=== PATIENT | female | born 1945 | race Caucasian/White ===

== ENCOUNTER → 2016-06-14 | Outpatient (CLI) | payer OTHER | LOC: FIMAGING 09:44 | DX: Z12.31 Encounter for screening mammogram for malignant neoplasm of breast (principal) | CPT/HCPCS: G0202 ==

== ENCOUNTER → 2016-06-21 | Outpatient (CLI) | payer OTHER | LOC: FIMAGING 10:04 | PROVIDERS: ATTEND Internal Medicine | DX: Z12.39 Encounter for other screening for malignant neoplasm of breast (principal); N63 Unspecified lump in breast; R92.0 Mammographic microcalcification found on diagnostic imaging of breast | CPT/HCPCS: 76641; G0206 ==

== ENCOUNTER → 2016-06-29 | Outpatient (CLI) | payer OTHER ==
[~2016-06-29] MED LIST: BUPIVACAINE 0.5% 10 ML SDV ONE; LIDO/EPI 1% **Not for Epidural 20 ML MDV ONE; LIDOCAINE 1% 30 ML SDV ONE; NA BICARBONATE 50 MEQ/50 ML VIAL ONE; THROMBIN (BOVINE) 5,000 UNIT VIAL TP ONE
[2016-07-06 11:50] LABS: ACCESSION # HR17-24236; INTERPRETATION See Comments
== END ==
LOC: FIMAGING 13:27
PROVIDERS: ATTEND Internal Medicine
PROC: 0HBT3ZX Excision of Right Breast, Percutaneous Approach, Diagnostic (ICD-10-PCS; principal; 2016-06-29)
DX: C50.911 Malignant neoplasm of unspecified site of right female breast (principal)
CPT/HCPCS: 19083; 88305; 88341; 88342; 88360; 88361; G0206

== ENCOUNTER 2016-07-12 10:51 | Observation (INO) | payer OTHER ==
[2016-07-12] MEDS ORDERED: LIDOCAINE 1% 5 ML SDV ID PRN (12:00)
[2016-07-12] MEDS ORDERED: LR 1,000 ML IV ONE (12:00)
[2016-07-12] MEDS ORDERED: ceFAZolin 2 GM/DEXTROSE 100 ML IV ONE (12:30)
[2016-07-12] MEDS ORDERED: BUPIVACAINE 0.5% 30 ML SDV ONE (13:05)
[2016-07-12] MEDS ORDERED: THROMBIN (BOVINE) 20,000 UNIT SPRAY TP ONE (13:05)
[2016-07-12] MEDS ORDERED: MIDAZOLAM 2 MG/2 ML VIAL ONE (14:11)
[2016-07-12] MEDS ORDERED: PROPOFOL/EMULSION 500 MG/50 ML BOTTLE IV ONE (14:26)
[2016-07-12] MEDS ORDERED: fentaNYL 100 MCG/2 ML INJ ONE ×2 (14:26)
[2016-07-12] MEDS ORDERED: LIDOCAINE 2% 5 ML SDV ONE (15:01)
[2016-07-12] MEDS ORDERED: ROCURONIUM 50 MG/5 ML VIAL ONE (15:01)
[2016-07-12] MEDS ORDERED: epHEDrine SULFATE 10 MG/ML SYR ONE (15:01)
[2016-07-12] MEDS ORDERED: ONDANSETRON 4 MG/2 ML VIAL ONE (15:01)
[2016-07-12] MEDS ORDERED: SUGAMMADEX SODIUM 200 MG/2 ML VIAL IVP ONE (16:02)
[2016-07-12] MEDS ORDERED: NALOXONE HCL 0.4 MG/ML INJ IVP PRN (16:12)
[2016-07-12] MEDS ORDERED: POLYETHYLENE GLYCOL 3350 17 GM PKT PO PRN (16:12)
[2016-07-12] MEDS ORDERED: HYDROmorphONE/DILAUDID 6 MG/30 ML PCA IV PRN (16:12)
[2016-07-12] MEDS ORDERED: ONDANSETRON 4 MG/2 ML VIAL IVP PRN (16:12)
[2016-07-12] MEDS ORDERED: MAGNESIUM HYDROXIDE 30 ML UDCUP PO PRN (16:12)
--- NOTE | 2016-07-12 16:12 | POSTOPPROG ---
Post Op Note Date of Operation: 07/12/16 Surgeon: René Willard Animal Stunner: Angela Del Angel Anesthesiologist: Rhianna Fatima Anesthesia: GET(General Endotracheal) Pre-op Diagnosis: R breast cancer Post-op Diagnosis: same Procedure: B Mastectomy c B Lamar Lymph Node biopsies Findings: benign nodes on frozen section Inf/Abcess present in the surg proc area at time of surgery?: No EBL: Minimal (50 cc) Complications: none Drains: Charles Vieyra Specimen(s): R and L breast to pathology R and L sentinel LNs to pathology
[2016-07-12] MEDS ORDERED: NS W/ 20 KCl/L 1,000 ML IV SCH (16:15)
[2016-07-12] MEDS ORDERED: HYDROmorphONE/DILAUDID 1 MG/ML SYR ONE (17:04)
--- NOTE | 2016-07-12 17:22 | GOP ---
[f rep st] OPERATIVE REPORT DATE OF OPERATION: SURGEON: René Willard MD SOUND EDITOR: CHAU Schwab ANESTHESIOLOGIST: Fatoumata Fatima MD PREOPERATIVE DIAGNOSIS: Right breast cancer. POSTOPERATIVE DIAGNOSIS: Right breast cancer. PROCEDURE PERFORMED: Bilateral mastectomies with sentinel lymph node biopsy. FINDINGS: The patient was found have negative sentinel nodes. She had a 2 cm mass in the lower out er quadrant of the right breast. DESCRIPTION OF PROCEDURE: The patient was taken to the operating room, where she received satisfact ory general endotracheal anesthesia by Dr. Fatima. Placed in supine position with both arms outstre tched on arm board. Prepped and draped in the usual sterile fashion. Bilateral elliptical skin inc isions were made to include the nipple-areolar complex. Skin flaps were developed to the clavicle, to the sternum, to the rectus sheath, and to the axilla and latissimus dorsi. Breast tissue was charlotte vated up off the pectoralis muscle, including the fascia, and dissected from [id number] towar d the axilla. In the axilla, the sentinel nodes were isolated with a gamma probe. Two nodes were d issected out on the right and one node on the left; all sent for frozen sections, and all returned a s negative. The mastectomies were completed bilaterally. Breast tissue was properly marked and rem sophie. Hemostasis was carefully obtained with electrocautery. Wounds were infiltrated with 0.5% Mar deniz and sprayed with some topical thrombin bilaterally. A 10 mm flat GABBI drain was brought out thr ough a separate stab incision and secured to the skin with nylon sutures. Breast tissue was reappro ximated with a running 3-0 Vicryl suture for the subcutaneous tissue and a running 4-0 Monocryl subc uticular stitch for the skin. All layers were infiltrated with 0.5% Marcaine. There were no compli cations. Estimated blood loss was less than 25 cc. She was taken to the recovery room in good condi tion. /[id number]/MODL
[2016-07-12] MEDS: OXYCODONE/APAP 5/325 TAB PO PRN (19:51)
[2016-07-12] MEDS: SENNOSIDES/DOCUSATE SODIUM TAB PO SCH (20:08)
[2016-07-12] MEDS: KETOROLAC 15 MG/1 ML SDV IVP SCH (20:09)
[2016-07-12] MEDS ORDERED: ZOLPIDEM TARTRATE 5 MG TAB PO PRN (23:11)
[2016-07-13] MEDS: KETOROLAC 15 MG/1 ML SDV IVP SCH ×3 (00:20→12:33)
[2016-07-13] MEDS: OXYCODONE/APAP 5/325 TAB PO PRN ×3 (04:29→12:53)
[2016-07-13 05:50] LABS: HEMATOCRIT 35.1 % (38.0-47.0); HEMOGLOBIN 11.5 g/dL (12.6-16.3)
[2016-07-13 06:23] LABS: ANION GAP 4 mEq/L (8-16); CALCIUM 8.5 mg/dL (8.5-10.4); CARBON DIOXIDE 26 mEq/l (22-31); CHLORIDE 106 mEq/L (97-110); CREATININE 0.9 mg/dL (0.6-1.0); GLOMERULAR FILTRATION RATE > 60; GLUCOSE 100 mg/dL (70-100); SODIUM 136 mEq/L (134-144)
[2016-07-13] MEDS: SENNOSIDES/DOCUSATE SODIUM TAB PO SCH (08:59)
--- NOTE | 2016-07-13 11:34 | SOAPPROG ---
SOAP Progress Note Assessment/Plan: Assessment: FEELS GOOD STATUS POST DOUBLE MASTECTOMY / WANTS TO GO HOME / AFEBRILE AND VITAL SIGNS STABLE/ WOUND OKAY/ MINIMAL GABBI DRAINAGE / Plan: HOME TODAY/ FOLLOW-UP NEXT WEEK FOR DRAIN REMOVAL 07/13/16 11:32 Objective: Vital Signs Temp Pulse Resp BP Pulse Ox 37.0 C 74 16 99/56 L 94 07/13/16 08:28 07/13/16 08:28 07/13/16 08:28 07/13/16 08:28 07/13/16 08:28 Laboratory Results 07/13/16 05:34 07/13/16 05:34 07/12/16 07/13/16 07/14/16 05:59 05:59 05:59 Intake Total 3520 Output Total 525 Balance 2995 ICD10 Worksheet Patient Problems: Problems Problem Status Onset Breast cancer Acute - ICD10 Problem Qualifiers (1) Breast cancer Qualifiers: Breast location: B Patient sex: P Laterality: L
[2016-07-13 12:30] VITALS: BP 119/67; PULSE 85; RESP 18; TEMP 98.4; O2SAT 91
[2016-07-14] MEDS ORDERED: ENOXAPARIN 40 MG/0.4 ML SYR SC SCH (09:00)
== END 2016-07-13 12:57 | disposition home or self-care (01) ==
LOC: F3E 10:51 → F1N 15:00
PROVIDERS: ADMIT Surgery; ATTEND Surgery
PROC: 07B60ZX Excision of Left Axillary Lymphatic, Open Approach, Diagnostic (ICD-10-PCS; principal; 2016-07-12 13:45)
PROC: 0HTV0ZZ Resection of Bilateral Breast, Open Approach (ICD-10-PCS; principal; 2016-07-12 13:45)
DX: C50.511 Malignant neoplasm of lower-outer quadrant of right female breast (principal)
CPT/HCPCS: 19305; 78195; A9520; G0378; J0690; J1170; J1885; J2250; J2405; J2704; J3010

== ENCOUNTER 2016-08-18 11:05 | Day surgery (SDC) | payer OTHER ==
[~2016-08-18 11:05] MED LIST changes: -BUPIVACAINE 0.5% 10 ML SDV ONE; +BUPIVACAINE 0.5% 30 ML SDV ONE; -LIDO/EPI 1% **Not for Epidural 20 ML MDV ONE; -LIDOCAINE 1% 30 ML SDV ONE; +LIDOCAINE 1% 300 MG/30 ML SDV ONE; -NA BICARBONATE 50 MEQ/50 ML VIAL ONE; +SODIUM BICARBONATE 10 MEQ/10 ML SYR IVP ONE; -THROMBIN (BOVINE) 5,000 UNIT VIAL TP ONE
[2016-08-18] MEDS ORDERED: ceFAZolin 2 GM/DEXTROSE 100 ML IV ONE ×2 (11:32→13:16)
[2016-08-18] MEDS ORDERED: LIDOCAINE 1% 2 ML INJ ONE (11:53)
[2016-08-18] MEDS ORDERED: LR 1,000 ML IV ONE (12:01)
[2016-08-18] MEDS ORDERED: LIDOCAINE 1% 2 ML INJ ID PRN (12:01)
[2016-08-18] MEDS ORDERED: MIDAZOLAM 2 MG/2 ML VIAL IVP ONE (13:06)
--- NOTE | 2016-08-18 13:16 | PDHPUP ---
History & Physical Update H&P update statement: This history and physical update is based on an assessment of the patient which was completed after admission or registration (within 24 hours), but prior to the surgery/procedure. H&P update: H&P reviewed & patient examined, no change in patient's condition since H&P completed
[2016-08-18] MEDS ORDERED: fentaNYL 100 MCG/2 ML INJ ONE (13:28)
[2016-08-18] MEDS ORDERED: PROPOFOL 200 MG/20 ML VIAL ONE (13:28)
[2016-08-18] MEDS ORDERED: LIDOCAINE 2% 5 ML SDV ONE (13:30)
[2016-08-18] MEDS ORDERED: epHEDrine SULFATE 10 MG/ML SYR ONE (13:39)
[2016-08-18] MEDS ORDERED: ACETAMINOPHEN 500 MG TAB PO PRN (13:58)
[2016-08-18] MEDS ORDERED: OXYCODONE/APAP 5/325 TAB PO PRN ×2 (13:58→15:01)
[2016-08-18] MEDS ORDERED: HYDROCODONE/APAP 5/325 TAB PO PRN (13:58)
[2016-08-18] MEDS ORDERED: PROMETHAZINE HCL 25 MG/ML INJ IVP PRN (13:58)
[2016-08-18] MEDS ORDERED: fentaNYL 100 MCG/2 ML INJ IVP PRN (13:58)
[2016-08-18] MEDS ORDERED: NALOXONE HCL 0.4 MG/ML INJ IVP PRN (13:58)
[2016-08-18] MEDS ORDERED: ONDANSETRON 4 MG/2 ML VIAL IVP PRN (13:58)
[2016-08-18] MEDS ORDERED: HYDROmorphONE/DILAUDID 1 MG/ML SYR IVP PRN (13:58)
[2016-08-18] MEDS ORDERED: KETOROLAC 30 MG/1 ML SDV ONE (14:04)
--- NOTE | 2016-08-18 14:24 | POSTANESTH ---
Post Anesthetic Evaluation Cardiovascular Status: Normal, Stable Respiratory Status: Normal, Stable Level of Consciousness/Mental Status: Can Participate in Eval Pain Control: Adequate, Prn Tx Ordered Nausea/Vomiting Control: Adequate, Prn Tx Ordered Complications Possibly Related to Anesthesia: None Noted
[2016-08-18 14:26] VITALS: TEMP 97
--- NOTE | 2016-08-18 15:05 | POSTOPPROG ---
Post Op Note Date of Operation: 08/18/16 Surgeon: René Willard Anesthesiologist: GASTON Anesthesia: GET(General Endotracheal) Pre-op Diagnosis: BREAST CANCER Post-op Diagnosis: SAME Indication: CHEMO ACCESS Procedure: LEFT SUBCLAVIAN PORT WITH FLUOROSCOPIC GUIDANCE Findings: GOOD POSITION INFLOW Inf/Abcess present in the surg proc area at time of surgery?: No Depth: Deep Incisional (Fascial) EBL: Minimal Complications: NONE
[2016-08-18 15:33] VITALS: BP 134/68; PULSE 75; RESP 18; O2SAT 92
== END 2016-08-18 15:58 | disposition home or self-care (01) ==
LOC: FSGY 11:05
PROVIDERS: ATTEND Surgery
PROC: 02H633Z Insertion of Infusion Device into Right Atrium, Percutaneous Approach (ICD-10-PCS; principal; 2016-08-18 13:15)
DX: C50.911 Malignant neoplasm of unspecified site of right female breast (principal); C77.3 Secondary and unspecified malignant neoplasm of axilla and upper limb lymph nodes
CPT/HCPCS: C1788; J0690; J1642; J1885; J2250; J2704; J3010

== ENCOUNTER → 2016-12-31 | Outpatient (CLI) | payer OTHER | LOC: FIMAGING 14:36 | PROVIDERS: ATTEND Physician Assistant | DX: M41.86 Other forms of scoliosis, lumbar region (principal); M51.36 Other intervertebral disc degeneration, lumbar region ==

== ENCOUNTER 2017-12-23 18:04 | Emergency (ER) | payer OTHER ==
[2017-12-23] MEDS ORDERED: ONDANSETRON 4 MG/2 ML VIAL IVP ONE (18:23)
[2017-12-23] MEDS ORDERED: NS 1,000 ML IV ONE ×2 (18:25→18:56)
--- NOTE | 2017-12-23 18:28 | EDPHY ---
H & P Stated Complaint: Upper abd pain wrapping around to bk-"feels like previous bowel blk" - Medical/Surgical History Hx Asthma: No Hx Chronic Respiratory Disease: No Hx Diabetes: No Hx Cardiac Disease: No Hx Renal Disease: Yes Hx Cirrhosis: No Hx Alcoholism: No Hx HIV/AIDS: No Hx Splenectomy or Spleen Trauma: No Other PMH: laminectomy, nephrectomy 2001 [place], bowel obstruction, hysterectomy, hypertension, degenerative disk disease, fused vertebrae, double masectomy - Social History Smoking Status: Never smoked Alcohol Use: Sober Drug Use: None Time Seen by Provider: 12/23/17 18:11 HPI/ROS: CHIEF COMPLAINT: Severe abdominal pain HISTORY OF PRESENT ILLNESS: 72-year-old female with prior small-bowel obstruction presents with severe abdominal pain. Onset upper abdominal pain 90 min ago. Pain is moderate to severe and waxes and wanes. Associated with nausea. 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 No fever or vomiting. Similar prior episodes with small bowel obstruction. REVIEW OF SYSTEMS: complete 10 point ROS reviewed and is negative except for the noted elements in the HPI (Cyndi Bryant) - Social History Additional Social History: (Cyndi Bryant) - Physical Exam Exam: General Appearance: Alert, pleasant, appears in pain Eyes: Pupils equal and round, no conjunctival pallor or injection ENT, Mouth: Mucous membranes moist Neck: Normal inspection Respiratory: Lungs are clear to auscultation Cardiovascular: Regular rate and rhythm Gastrointestinal: Abdomen is soft, diffuse tenderness especially in the right upper quadrant and epigastrium Neurological: A&O, nonfocal exam Skin: Warm and dry, no rash Extremities: Normal inspection Psychiatric: Mood and affect normal (Cyndi Bryant) Constitutional: Initial Vital Signs Temperature (C) 36.7 C 12/23/17 18:09 Heart Rate 71 12/23/17 18:09 Respiratory Rate 20 12/23/17 18:09 Blood Pressure 100/62 12/23/17 18:09 O2 Sat (%) 100 12/23/17 18:09 O2 Delivery Mode Room Air O2 (L/minute) 2 Allergies/Adverse Reactions: Sulfa (Sulfonamide Antibiotics) Allergy (Severe, Verified 08/17/16 15:43) Other-Enter Comments Home Medications: Medication Instructions Recorded Colestipol HCl [Colestid (*)] 2 gm PO DAILY 07/12/16 Escitalopram Oxalate [Lexapro] 20 mg PO DAILY 07/12/16 LORazepam [Ativan (*)] 0.5 mg PO HS PRN 07/12/16 Losartan Potassium 100 mg PO DAILY 07/12/16 Zolpidem Tartrate [Ambien 10 mg] 5 mg PO HS PRN 07/12/16 Hydrocodone/Acetaminophen 08/17/16 Medical Decision Making - Diagnostics Imaging: Discussed imaging studies w/ call taker Radiologist - Diagnostics Imaging Results: Imaging Impressions Abdomen CT 12/23/17 18:25 Impression: 1. Negative for significant small bowel dilatation. 2. 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 3. See above report for additional findings. ED Course/Re-evaluation: This patient presents with severe abdominal pain, consistent with likely small bowel obstruction. Morphine and Zofran IV given for pain control. CT scan of the abdomen/pelvis ordered. CT results discussed with the patient and her . No evidence of small- bowel obstruction or other concerning etiology for pain. Feels much better and pain has resolved. Abdomen is soft and nontender. Received Dilaudid IV one hour ago. Will observe in the emergency department. If pain returns, plan to admit the patient for observation. 8pm: signed over to Dr. Chisholm. If pt continues to be pain-free, will d/c home. Plan to admit for observation if pain recurs. (Cyndi Bryant) Differential Diagnosis: Differential diagnosis includes though it is not limited to appendicitis, cholecystitis, diverticulitis, pyelonephritis, bowel perforation, small bowel obstruction. (Cyndi Bryant) Other Provider: Care assumed at 8:00 p.m.. Patient examined at 8:50 p.m. She feels well, she is smiling, she is up to the bathroom and essentially asymptomatic, her abdomen is soft and nontender. She would like to go home which I think is reasonable if her urinalysis is normal. Her potassium was 5.9 on hemolyzed specimen, 3.9 on i-STAT, 3.1 on repeat. I do not think that this needs to be emergently addressed. 2102: Discussed with Sebastian Schwartz for Chart. Urinalysis with 5-10 WBC, no dysuria or hematuria or fever, culture sent and no treatment at this time. 2114: No respiratory complaints but continues to desaturate below 90% likely from hypoventilation from the Dilaudid, speaks in full sentences. Plan to observe until she is no longer hypoxic, then stable for discharge. 2213: oxygen 95%, no respiratory complaints or abdominal pain, wants to go home which I think is reasonable. (PhanSandro Ochoa) - Data Points Laboratory Results: Laboratory Results 12/23/17 18:23 12/23/17 20:00 12/23/17 12/23/17 12/23/17 20:50 20:00 18:37 WBC RBC Hgb POC Hgb 15.0 gm/dL gm/dL (12.6-16.3) Hct POC Hct 44 % % (38-47) MCV MCH MCHC RDW Plt Count MPV Neut % (Auto) Lymph % (Auto) [place] % (Auto) Eos % (Auto) Baso % (Auto) Nucleat RBC Rel Count Absolute Neuts (auto) Absolute Lymphs (auto) Absolute Monos (auto) Absolute Eos (auto) Absolute Basos (auto) Absolute Nucleated RBC Immature Gran % Immature Gran # POC Sodium 142 mEq/L mEq/L (135-145) Sodium POC Potassium 3.9 mEq/L mEq/L (3.3-5.0) Potassium 3.1 mEq/L L mEq/L (3.3-5.0) POC Chloride 106 mEq/L mEq/L (97-110) Chloride Carbon Dioxide Anion Gap POC BUN 17 mg/dL mg/dL (7-23) BUN Creatinine POC Creatinine 0.8 mg/dL mg/dL (0.6-1.0) Estimated GFR Glucose POC Glucose 86 mg/dL mg/dL (70-100) Calcium Total Bilirubin Conjugated Bilirubin Unconjugated Bilirubin AST ALT Alkaline Phosphatase Total Protein Albumin Lipase Specimen Hemolysis Urine Color PALE YELLOW Urine Appearance CLEAR Urine pH 5.0 (5.0-7.5) Ur Specific [place] > 1.060 H (1.002-1.030) Urine Protein NEGATIVE (NEGATIVE) Urine Ketones NEGATIVE (NEGATIVE) Urine Blood 1+ H (NEGATIVE) Urine Nitrate NEGATIVE (NEGATIVE) Urine Bilirubin NEGATIVE (NEGATIVE) Urine Urobilinogen NEGATIVE EU EU (0.2-1.0) Ur Leukocyte Esterase 2+ H (NEGATIVE) Urine RBC 1-3 /hpf /hpf (0-3) Urine WBC 5-10 /hpf H /hpf (0-3) Ur Epithelial Cells TRACE /lpf /lpf (NONE-1+) Urine Mucus TRACE /lpf /lpf (NONE-1+) Urine Glucose NEGATIVE (NEGATIVE) 12/23/17 12/23/17 18:23 18:23 WBC 5.63 10^3/uL 10^3/uL (3.80-9.50) RBC 4.78 10^6/uL 10^6/uL (4.18-5.33) Hgb 14.7 g/dL g/dL (12.6-16.3) POC Hgb Hct 44.3 % % (38.0-47.0) POC Hct MCV 92.7 fL fL (81.5-99.8) MCH 30.8 pg pg (27.9-34.1) MCHC 33.2 g/dL g/dL (32.4-36.7) RDW 13.2 % % (11.5-15.2) Plt Count 163 10^3/uL 10^3/uL (150-400) MPV 9.7 fL fL (8.7-11.7) Neut % (Auto) 38.9 % L % (39.3-74.2) Lymph % (Auto) 47.6 % H % (15.0-45.0) [place] % (Auto) 7.6 % % (4.5-13.0) Eos % (Auto) 5.0 % % (0.6-7.6) Baso % (Auto) 0.7 % % (0.3-1.7) Nucleat RBC Rel Count 0.0 % % (0.0-0.2) Absolute Neuts (auto) 2.19 10^3/uL 10^3/uL (1.70-6.50) Absolute Lymphs (auto) 2.68 10^3/uL 10^3/uL (1.00-3.00) Absolute Monos (auto) 0.43 10^3/uL 10^3/uL (0.30-0.80) Absolute Eos (auto) 0.28 10^3/uL 10^3/uL (0.03-0.40) Absolute Basos (auto) 0.04 10^3/uL 10^3/uL (0.02-0.10) Absolute Nucleated RBC 0.00 10^3/uL 10^3/uL (0-0.01) Immature Gran % 0.2 % % (0.0-1.1) Immature Gran # 0.01 10^3/uL 10^3/uL (0.00-0.10) POC Sodium Sodium 137 mEq/L mEq/L (135-145) POC Potassium Potassium 5.9 mEq/L H mEq/L (3.3-5.0) POC Chloride Chloride 106 mEq/L mEq/L (97-110) Carbon Dioxide 20 mEq/l L mEq/l (22-31) Anion Gap 11 mEq/L mEq/L (6-14) POC BUN BUN 15 mg/dL mg/dL (7-23) Creatinine 0.8 mg/dL mg/dL (0.6-1.0) POC Creatinine Estimated GFR > 60 Glucose 86 mg/dL mg/dL (70-100) POC Glucose Calcium 9.3 mg/dL mg/dL (8.5-10.4) Total Bilirubin 1.4 mg/dL mg/dL (0.1-1.4) Conjugated Bilirubin 1.2 mg/dL H mg/dL (0.0-0.5) Unconjugated Bilirubin 0.2 mg/dL mg/dL (0.0-1.1) AST 49 IU/L H IU/L (14-46) ALT 13 IU/L IU/L (9-52) Alkaline Phosphatase 84 IU/L IU/L (38-126) Total Protein 7.6 g/dL g/dL (6.3-8.2) Albumin 4.7 g/dL g/dL (3.5-5.0) Lipase 197 IU/L IU/L (23-300) Specimen Hemolysis 272 Urine Color Urine Appearance Urine pH Ur Specific [place] Urine Protein Urine Ketones Urine Blood Urine Nitrate Urine Bilirubin Urine Urobilinogen Ur Leukocyte Esterase Urine RBC Urine WBC Ur Epithelial Cells Urine Mucus Urine Glucose Medications Given: Discontinued Medications Hydromorphone HCl (Dilaudid) 0.5 mg IVP EDNOW ONE Stop: 12/23/17 18:39 Last Admin: 12/23/17 18:44 Dose: 0.5 mg Sodium Chloride (Ns) 1,000 mls @ 0 mls/hr IV EDNOW ONE; Wide Open PRN Reason: Protocol Stop: 12/23/17 18:26 Last Admin: 12/23/17 18:28 Dose: 1,000 mls Sodium Chloride (Ns) 1,000 mls @ 0 mls/hr IV ONCE ONE; Wide Open PRN Reason: Protocol Stop: 12/23/17 18:57 Last Admin: 12/23/17 19:09 Dose: 1,000 mls Morphine Sulfate (Morphine) 4 mg IVP EDNOW ONE Stop: 12/23/17 18:24 Last Admin: 12/23/17 18:27 Dose: 4 mg Ondansetron HCl (Zofran) 4 mg IVP EDNOW ONE Stop: 12/23/17 18:24 Last Admin: 12/23/17 18:28 Dose: 4 mg Point of Care Test Results: Chemistry 12/23/17 18:37 POC Sodium 142 mEq/L mEq/L (135-145) POC Potassium 3.9 mEq/L mEq/L (3.3-5.0) POC Chloride 106 mEq/L mEq/L (97-110) POC BUN 17 mg/dL mg/dL (7-23) POC Creatinine 0.8 mg/dL mg/dL (0.6-1.0) POC Glucose 86 mg/dL mg/dL (70-100) ISTAT H&H 12/23/17 18:37 POC Hgb 15.0 gm/dL gm/dL (12.6-16.3) POC Hct 44 % % (38-47) Departure - Departure Disposition: Home, Routine, Self-Care Clinical Impression: Abdominal pain Qualifiers: Abdominal location: generalized Qualified Code(s): R10.84 - Generalized abdominal pain Condition: Good Instructions: Acute Abdominal Pain (ED) Additional Instructions: Clear liquids for 24 hr. Return for recurrent symptoms or any concerns. Referrals: Jaswinder Alfredo MD [Primary Care Provider] - 2-3 days without fail
[2017-12-23] MEDS ORDERED: IOPAMIDOL (ISOVUE-300) 100 ML BTL ONE (18:31)
[2017-12-23 18:35] LABS: PLATELET COUNT 163 10^3/uL (150-400)
[2017-12-23] MEDS ORDERED: HYDROmorphONE/DILAUDID 2 MG/ML INJ IVP ONE (18:38)
[2017-12-23 22:12] VITALS: BP 138/67
== END 2017-12-23 22:23 | disposition home or self-care (01) ==
DX: R10.84 Generalized abdominal pain (principal); E86.9 Volume depletion, unspecified
CPT/HCPCS: 74177; 96361; 96374; 96375; 99285; J1170; J2270; J2405; Q9967; 82435-PO; 82565-PO; 82947-PO; 84132-PO; 84295-PO; 84520-PO; 85014-PO

== ENCOUNTER 2017-12-24 13:24 | Inpatient (IN) | payer OTHER ==
--- NOTE | 2017-12-24 13:34 | EDPHY ---
H & P Stated Complaint: abd pain N/V Time Seen by Provider: 12/24/17 13:34 - Medical/Surgical History Hx Asthma: No Hx Chronic Respiratory Disease: No Hx Diabetes: No Hx Cardiac Disease: No Hx Renal Disease: Yes Hx Cirrhosis: No Hx Alcoholism: No Hx HIV/AIDS: No Hx Splenectomy or Spleen Trauma: No Other PMH: laminectomy, nephrectomy 2001 CA, bowel obstruction, hysterectomy, hypertension, degenerative disk disease, fused vertebrae, double masectomy - Social History Smoking Status: Never smoked Constitutional: Initial Vital Signs Temperature (C) 37.5 C 12/24/17 13:30 Heart Rate 79 12/24/17 13:30 Respiratory Rate 18 12/24/17 13:30 Blood Pressure 153/79 H 12/24/17 13:30 O2 Sat (%) 93 12/24/17 13:30 O2 Delivery Mode Nasal Cannula O2 (L/minute) 2 Allergies/Adverse Reactions: Sulfa (Sulfonamide Antibiotics) Allergy (Severe, Verified 12/24/17 13:30) Other-Enter Comments Home Medications: Medication Instructions Recorded Colestipol HCl [Colestid (*)] 2 gm PO BID 07/12/16 Escitalopram Oxalate [Lexapro] 20 mg PO DAILY 07/12/16 LORazepam [Ativan (*)] 0.5 - 1 mg PO HS PRN 07/12/16 Losartan Potassium 100 mg PO DAILY 07/12/16 Zolpidem Tartrate [Ambien 10 mg] 5 mg PO HS PRN 07/12/16 Hydrocodone/Acetaminophen [Blackey 1 each PO Q6 PRN 08/17/16 5/325 (*)] Herbals/Supplements -Info Only 1 ea PO DAILY 12/24/17 Benzocaine/Menthol 15/ [Cepacol 1 ea PO PRN PRN lozenge 12/29/17 Lozenge] Medical Decision Making ED Course/Re-evaluation: CHIEF COMPLAINT: Abdominal pain, nausea, and vomiting HISTORY OF PRESENT ILLNESS: The patient is a 72 y/o female with a history of an abdominal obstruction, kidney cancer, left-sided nephrectomy, and hysterectomy complaining of abdominal pain, nausea and vomiting. She has had three bowel obstructions, which was thought to be due to the scar tissue from the hysterectomy. For the prior obstructions she saw Dr. Willard, general surgeon. She presented to the emergency department yesterday and had an unremarkable abdominopelvic CT. 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 The left kidney is surgically absent. She was giving numerous medications and her pain subsided after she was given Dilaudid. She was discharged home, but upon returning home the pain increased again. Today she began to vomit more and is no longer passing flatulence. As her symptoms worsened, she decided to present to the emergency department again. No headache, chest pain, shortness of breath , urinary or bowel complaints, numbness, paresthesias, fevers. REVIEW OF SYSTEMS: A comprehensive 10 system review of systems is otherwise negative aside from elements mentioned in the history of present illness and medical decision making. PHYSICAL EXAM: HR, BP, O2 Sat, RR. Temp noted General Appearance: Alert, well hydrated, appropriate, and non-toxic appearing. Head: Atraumatic without scalp tenderness or obvious injury Eyes: Pupils equal, round, reactive to light and accommodation, EOMI, no trauma , no injection. Ears: Clear bilaterally, no perforation, normal landmarks Nose: Atraumatic, no rhinorrhea, clear. Throat: There is no erythema or exudates, no lesions, normal tonsils, mucus membranes moist. Neck: Supple, nontender, no lymphadenopathy. Respiratory: No retractions, no distress, no wheezes, and no accessory muscle use. Lungs are clear to auscultation bilaterally. Cardiovascular: Regular rate and rhythm, no murmurs, rubs, or gallops. Bilateral carotid, radial, dorsalis pedis, and posterior tibial pulses intact. Good capillary refill all extremities. Gastrointestinal: Diffuse abdominal tenderness with mild distension. Abdomen is soft, no masses, no rebound, no guarding, no peritoneal signs. Musculoskeletal: Normal active ROM of all extremities, atraumatic. Neurological: Alert, appropriate, and interactive. The patient has normal DTRs and non-focal cranial nerves, motor, sensory, and cerebellar exam. Skin: No rashes, good turgor, no nodules on palpation. Past medical history: Kidney cancer, bowel obstruction, hypertension, degenerative disk disease Past surgical history: Laminectomy, left-sided nephrectomy, hysterectomy, fused vertebrae, double mastectomy Family history: Denies Social history: at bedside, lives in [place], retired DIAGNOSTICS/PROCEDURES/CRITICAL CARE TIME: Not indicated DIFFERENTIAL DIAGNOSIS: The differential diagnosis for the patient's abdominal pain included but was not limited to bowel obstruction, ovarian cyst, pelvic inflammatory disease, ovarian torsion, urinary tract infection, ectopic , cholecystitis, and appendicitis. MEDICAL DECISION MAKING: The patient is a 72 y/o female with a history of an abdominal obstruction, kidney cancer, left-sided nephrectomy, and hysterectomy complaining of abdominal pain, nausea and vomiting. She did have an abdominopelvic CT yesterday , which showed a possible obstruction. On exam she has diffuse abdominal tenderness with mild distension; she is clinically obstructed. Labs and abdominopelvic CT ordered; 1L IV NS, 30mg IV Toradol, and 1mg IV Dilaudid administered. 1340: I spoke with Dr. Mike Alfredo's PA, Sebastian Schwartz, regarding this patient. If surgery is not required, then he will consult on this patient. He is comfortable with admitting this patient if needed. 1418: I spoke with Dr. Adams, radiologist, regarding this patient. He reports that the patient did have a mild obstruction yesterday. He told Dr. Bryant that the patient had "dilated pelvic loops", however the patient only had upper abdominal pain so it was thought that she wasn't obstructed. Additionally, the patient reports her symptoms where completely gone when she left the ER. I will call Dr. Willard/Alex, general surgeon, for the bowel obstruction. 1420: Reassessed patient and discussed plan to not have an additional CT. She is comfortable with plan for surgery and admission. I feel she is clinically obstructed and based on CT yesterday does not require additional radiation exposure. 1428: I consulted with Dr. Johnson, general surgeon, regarding this patient. Dr. Johnson and Sebastian Schwartz will talk to decide who will admit the patient. 1437: I consulted with Dr. Willard, general surgeon, regarding this patient. Dr. Alfredo, will admit this patient. Dr. Willard will see this patient tomorrow. NG tube ordered. 1439: Reassessed patient and discussed plan for Dr. Willard consultation and NG tube placement. Dr. Johnson is in the patient's room at my time of reassessment. Patient is comfortable with this plan. - Data Points Laboratory Results: Laboratory Results 12/25/17 08:18 12/25/17 08:18 Medications Given: Discontinued Medications Hydrocodone Bitart/Acetaminophen ([place] 5/325) 1 tab PO Q6 PRN PRN Reason: Pain, Moderate Stop: 01/03/18 14:58 Last Admin: 12/28/17 20:35 Dose: 1 tab Bupivacaine HCl (Sensorcaine 0.5% Vial) Confirm Administered Dose 30 ml .ROUTE .STK-MED ONE Stop: 12/25/17 13:19 Last Admin: 12/25/17 14:18 Dose: 20 ml Enoxaparin Sodium (Lovenox) 40 mg SC DAILY [facility] Stop: 06/23/18 11:59 Last Admin: 12/29/17 08:41 Dose: 40 mg Escitalopram Oxalate (Lexapro) 20 mg PO DAILY [facility] Stop: 06/23/18 08:59 Last Admin: 12/29/17 08:40 Dose: 20 mg Heparin Sodium (Porcine) (Heparin Sc Injection) 5,000 unit SC Q8 [facility] Stop: 06/22/18 21:59 Last Admin: 12/25/17 05:39 Dose: 5,000 unit Hydromorphone HCl (Dilaudid) 1 mg IVP EDNOW ONE Stop: 12/24/17 13:44 Last Admin: 12/24/17 13:53 Dose: 1 mg Hydromorphone HCl (Dilaudid) 0.2 - 0.4 mg IVP Q4HRS PRN PRN Reason: Pain, Severe Unable to Take PO Stop: 01/03/18 14:49 Last Admin: 12/25/17 05:37 Dose: 0.4 mg Hydromorphone HCl (Dilaudid) 0.2 - 0.8 mg IVP Q3 PRN PRN Reason: Pain, Severe Unable to Take PO Stop: 01/03/18 14:49 Last Admin: 12/25/17 10:07 Dose: 0.5 mg Hydromorphone HCl (Dilaudid) 0.2 - 0.8 mg IVP Q1 PRN PRN Reason: Pain, Severe Unable to Take PO Stop: 01/04/18 06:59 Last Admin: 12/28/17 15:13 Dose: 0.8 mg Sodium Chloride (Ns) 1,000 mls @ 0 mls/hr IV EDNOW ONE; Wide Open PRN Reason: Protocol Stop: 12/24/17 13:44 Last Admin: 12/24/17 13:54 Dose: 1,000 mls Potassium Chloride/Dextrose/Sod Cl (D5w 1/2 Ns W/ 20 Kcl/L) 1,000 mls @ 125 mls /hr IV CONT [facility]A Stop: 06/22/18 14:59 Last Admin: 12/25/17 09:00 Dose: 1,000 mls Cefoxitin Sodium 2 gm/ Sodium (Chloride) 100 mls @ 200 mls/hr IV ONCALL ONE PRN Reason: Protocol Stop: 12/25/17 13:11 Last Admin: 12/25/17 13:38 Dose: 100 mls Lactated Ringer's (Lr) 1,000 mls @ 0 mls/hr IV ONCE ONE PRN Reason: As Directed Stop: 12/25/17 13:10 Last Admin: 12/25/17 13:35 Dose: 1,000 mls Potassium Chloride/Dextrose/Sod Cl (D5w 1/2 Ns W/ 20 Kcl/L) 1,000 mls @ 150 mls /hr IV CONT [facility] Stop: 06/23/18 18:29 Last Admin: 12/28/17 19:39 Dose: 1,000 mls Ketorolac Tromethamine (Toradol) 30 mg IVP EDNOW ONE Stop: 12/24/17 13:44 Last Admin: 12/24/17 13:52 Dose: 30 mg Losartan Potassium (Cozaar) 100 mg PO DAILY [facility] Stop: 06/23/18 08:59 Last Admin: 12/29/17 08:40 Dose: 100 mg Metoclopramide HCl (Reglan Injection) 10 mg IVP ONCE ONE Stop: 12/28/17 07:17 Last Admin: 12/28/17 08:10 Dose: 10 mg Midazolam HCl (Versed) 2 mg IVP ONCALL ONE Stop: 12/25/17 13:05 Last Admin: 12/25/17 13:35 Dose: 2 mg Ondansetron HCl (Zofran) 4 mg IVP EDNOW ONE Stop: 12/24/17 13:44 Last Admin: 12/24/17 13:52 Dose: 4 mg Ondansetron HCl (Zofran) 4 mg IVP Q4HRS PRN PRN Reason: Nausea/Vomiting, Can't Take PO Stop: 06/22/18 14:49 Last Admin: 12/25/17 05:42 Dose: 4 mg Throat Lozenges (Cepacol Lozenge) 1 ea PO PRN PRN PRN Reason: Sore Throat Stop: 06/25/18 10:53 Last Admin: 12/28/17 07:12 Dose: 1 ea Point of Care Test Results: Chemistry 12/24/17 13:55 POC Sodium 141 mEq/L mEq/L (135-145) POC Potassium 3.6 mEq/L mEq/L (3.3-5.0) POC Chloride 105 mEq/L mEq/L (97-110) POC BUN 11 mg/dL mg/dL (7-23) POC Creatinine 0.7 mg/dL mg/dL (0.6-1.0) POC Glucose 126 mg/dL H mg/dL (70-100) ISTAT H&H 12/24/17 13:55 POC Hgb 14.6 gm/dL gm/dL (12.6-16.3) POC Hct 43 % % (38-47) Departure - Departure Disposition: [facility] Inpatient Acute Clinical Impression: Abdominal pain Qualifiers: Abdominal location: generalized Qualified Code(s): R10.84 - Generalized abdominal pain Nausea with vomiting Qualifiers: Vomiting type: unspecified Vomiting Intractability: unspecified Qualified Code( s): R11.2 - Nausea with vomiting, unspecified Bowel obstruction Qualifiers: Intestinal obstruction type: unspecified Intestinal obstruction extent: unspecified extent Qualified Code(s): K56.609 - Unspecified intestinal obstruction, unspecified as to partial versus complete obstruction Condition: Good Report Scribed for: Karlos Alva Report Scribed by: Zainab Lowry Date of Report: 12/24/17 Time of Report: 13:36
[2017-12-24] MEDS ORDERED: NS 1,000 ML IV ONE (13:43)
[2017-12-24] MEDS ORDERED: HYDROmorphONE/DILAUDID 2 MG/ML INJ IVP ONE (13:43)
[2017-12-24] MEDS ORDERED: ONDANSETRON 4 MG/2 ML VIAL IVP ONE (13:43)
[2017-12-24] MEDS ORDERED: KETOROLAC 30 MG/1 ML SDV IVP ONE (13:43)
[2017-12-24 14:05] LABS: PLATELET COUNT 175 10^3/uL (150-400)
[2017-12-24] MEDS ORDERED: LIDOCAINE 2% VISCOUS 15 ML UDCUP ONE (14:42)
[2017-12-24] MEDS ORDERED: BENZOCAINE UNIT DOSE SPRAY HURRICAINE MM ONE (14:42)
[2017-12-24] MEDS ORDERED: PROMETHAZINE HCL 25 MG/ML INJ IVP PRN (14:50)
[2017-12-24] MEDS ORDERED: LORazepam 0.5 MG TAB PO PRN ×2 (14:50→14:59)
[2017-12-24] MEDS ORDERED: ONDANSETRON DISINTEGRATING 4 MG TAB PO PRN (14:50)
[2017-12-24] MEDS ORDERED: LORazepam 2 MG/ML INJ IVP PRN (14:50)
[2017-12-24] MEDS ORDERED: diphenhydrAMINE 25 MG CAP PO PRN (14:50)
[2017-12-24] MEDS ORDERED: ACETAMINOPHEN 325 MG TAB PO PRN (14:50)
--- NOTE | 2017-12-24 15:26 | GCON ---
DATE OF CONSULTATION: 12/24/2017 CHIEF COMPLAINT: Small bowel obstruction. HISTORY OF PRESENT ILLNESS: The patient is a 72-year-old woman who is well known to Dr. Willard for hi story of renal cancer, nephrectomy, and has had lysis of adhesions in the past. She has also had rosario ast cancer in surgery for him and bilateral mastectomy with that. She presented to the emergency jozef yesterday with pain. It was crampy and feeling bloated. She tried an enema. A CT scan was obtain ed, which showed no significant small bowel dilatation. There was increased size in her angiomyolipo ma. She was discharged home; however, she started to have emesis. She had last passed flatus yester day and she continues to feel that she has a bowel obstruction. She presented to the ER. PAST MEDICAL HISTORY: Includes hypertension, hyperlipidemia, depression. PAST SURGICAL HISTORY: Includes nephrectomy in 2000, bowel obstruction, lysis of adhesions, hysterec zita, bilateral mastectomy. MEDICATIONS: Reviewed. ALLERGIES: Include sulfa. SOCIAL HISTORY: She does not use tobacco products. REVIEW OF SYSTEMS: No flatus or bowel movement. She has been vomiting. She denies abdominal pain. PHYSICAL EXAM: VITAL SIGNS: 37.5, 91, 127/74, 18, 93% on 2 L. GENERAL: Pleasant woman, appears wel l, sitting on gurney. HEENT: Normocephalic. No gross hearing deficits. Mucous membranes moist. P upils equal and round. No scleral icterus. LUNGS: Clear to auscultation bilaterally. No increased work of breathing. CARDIAC: Regular rate. ABDOMEN: Hyperactive bowel sounds. She is slightly di stended and tympanitic, but she is soft. Her midline scar is well healed. MUSCULOSKELETAL: Normal nails. IMPRESSION/PLAN: The patient is a 72-year-old with a CT scan that is not suggestive of a bowel obstr uction, but she is not passing flatus and throwing up. We will place an nasogastric tube. I am creek ng that she will resolve with intravenous fluids and bowel rest. I discussed the case with Dr. Lele sahni and with MEGHAN Weeks. /[id number]/MODL
--- NOTE | 2017-12-24 16:03 | GHP ---
DATE OF ADMISSION: 12/24/2017 REASON FOR ADMISSION: Abdominal pain. HISTORY OF PRESENT ILLNESS: This is a 72-year-old female who developed rather sudden onset of severe abdominal pain at 4 o'clock yesterday. She has a history of several small bowel obstructions, ultim ately needing to be released by surgery with Dr. Willard. Given her history and severity of pain, she came to the ER yesterday. She had x-rays done which were unconvincing for small-bowel obstruction. She was given Dilaudid IV with nice improvement of her pain and eventually went home. Unfortunately, she remained to be fairly uncomfortable through the night and this morning, returned back to the [facility] room. Images are currently pending, but her abdominal pain, she finds to be identical to pain she has previously experienced with small bowel obstruction. She has also begun nausea and vomiting . Her last bowel movement was yesterday. She has not had any flatus since yesterday. Her appetite is diminished. She has had a low-grade temperature. PAST MEDICAL HISTORY: Significant for prior renal cell carcinoma excision in 2000, bilateral mastect triny for breast cancer 2016, hypertension, low back pain, prior small bowel obstructions times at [facility]. SOCIAL HISTORY: , retired, lives at home with . Nonsmoker, nondrinker. FAMILY HISTORY: Mother from heart disease. Father lived to be into old age. MEDICATIONS: As noted per chart. ALLERGIES: Sulfa drugs. CODE STATUS: She is a full code. REVIEW OF SYSTEMS: GENERAL: She is feeling tired and fatigued, concerned. Suspect she has underlyi ng small bowel obstruction. HEAD: She does have some headaches. She denies visual change. Her negrita th has been dry. No dental complaints. NECK: No acute neck complaints. LUNGS: She denies shortne ss of breath, cough, wheeze or congestion. CARDIAC: She denies chest pain or palpitations. ABDOMEN : Notable for fairly significant low abdominal pain which wraps around from front to back. She stat es this is similar to pain she has had with previous small bowel obstructions. She has had nausea an d vomiting. She has not had bowel sounds or appropriate bowel activity including passing gas or felipe l movement since yesterday. No urinary complaints. BACK: Chronic low back pain is unchanged. No a cute issues. EXTREMITIES: Lower extremities without any acute complaints. PHYSICAL EXAM: VITAL SIGNS: Blood pressure initially 153/79, heart rate 78, respiratory rate 18, sa turation 93% on room air, temperature 37.5. Second blood pressure measurement 127/74. She is now 93 % on 2 L of oxygen. GENERAL: Pleasant, uncomfortable female. EYES: Symmetric pupils. HEAD: With out evidence of trauma. Oropharynx is benign. Tongue is somewhat dry. NECK: Without masses or les ions. LUNGS: Clear bilaterally. Dry cough. No crackles. HEART: Regular rate and rhythm without murmur. ABDOMEN: Quiet bowel sounds. Soft. She is moderately to significantly tender in the lower abdomen. Most discomfort is in the suprapubic region. No guarding or rebound. SKIN: Warm, dry, i ntact. EXTREMITIES: Lower extremities without edema. No acute joint swellings. PSYCHOLOGICAL: Anx ious, worried appropriately given her surgical history. DATABASE: White count unremarkable at 5.29, hemoglobin is 14.5, platelets 175. There is a left shif t on her white blood cells. Serum chemistry grossly normal. Sugar 126, potassium 3.6. Liver functi ons and pancreatic functions unremarkable. IMAGING: From yesterday, less dilation noted in comparison to prior, but prior imaging correlated wi th the need for eventual surgery. Further imaging is pending. ASSESSMENT: 1. Probable small bowel obstruction. I have spoken with Dr. Yudelka Johnson. Surgery will consult. An ticipate NG tube, decompression of stomach, and see how she progresses. Will provide intravenous Dil audid for pain control. Continue her medicines. Will allow ice chips to see if she can at least avery ntain some level of mouth moisturization. 2. Chronic back pain. No acute changes. Currently not much in the symptomatic range. 3. Hypertension, well controlled. Continue current medications. 4. Anxiety/depression. Continue Lexapro. /[id number]/MODL
[2017-12-24] MEDS: D5W 1/2 NS W/ 20 KCl/L 1,000 ML IV SCH (16:45)
[2017-12-24] MEDS: HYDROCODONE/APAP 5/325 TAB PO PRN (19:28)
[2017-12-24] MEDS: HYDROmorphONE/DILAUDID 1 MG/ML INJ IVP PRN (19:59)
[2017-12-24] MEDS: HEPARIN 5,000 UNIT/0.5 ML INJ SC SCH (21:56)
[2017-12-25] MEDS: D5W 1/2 NS W/ 20 KCl/L 1,000 ML IV SCH ×3 (00:38→21:06)
[2017-12-25] MEDS: HYDROmorphONE/DILAUDID 1 MG/ML INJ IVP PRN ×7 (01:26→23:11)
[2017-12-25] MEDS: ONDANSETRON 4 MG/2 ML VIAL IVP PRN ×2 (01:28→05:42)
[2017-12-25] MEDS: HEPARIN 5,000 UNIT/0.5 ML INJ SC SCH (05:39)
--- NOTE | 2017-12-25 08:20 | SOAPPROG ---
SOAP Progress Note Assessment/Plan: Assessment: 72 yo female with h/o multiple SBO, breast cancer with bilat mastectomy in 2016, renal cell carcinoma with excision in 2000, hypertension and chronic low back pain who presented to the ED with sudden onset of severe abdominal pain similar to pain she experienced with her prior SBOs. Xray and CT were without e/o current SBO, however given the pain and presentation a NGT was placed. Gen surg has consulted (appreciate assistance!). Plan: Acute abd pain - has improved somewhat since placement of the NGT and with the IV dilaudid, however she is quite distended and firm to her bilat lower abd ( LLQ > RLQ) and has not had flatus still. Will await surg input but will likely need exploratory surgery if pain does not resolve. Hypertension - currently stable DVT prophylaxis - lovenox sq Dispo - will switch to inpt as anticipate that she will stay greater than two midnights total given her persistent abd pain without resolution or identified cause 12/25/17 08:20 Subjective: Elsa is resting in bed. She says that she is feeling slightly better and not nauseous since the placement of the NGT, however her bilat lower abd, flakito the LLQ is still very TTP and is distended, firm. Objective: Vital Signs Temp Pulse Resp BP Pulse Ox 37.2 C 72 17 121/65 H 90 L 12/25/17 03:01 12/25/17 03:01 12/25/17 03:01 12/25/17 03:01 12/25/17 03:01 12/24/17 12/25/17 12/26/17 05:59 05:59 05:59 Intake Total 1785 Output Total 525 Balance 1260 Gen- alert, oriented, vitals stable Head- normocephalic, atraumatic Resp- LCTAB, no wheezing, rhonchi, rales CV- S1S2, RRR, no murmurs, rubs gallops Abd- NGT to suction, bilat lower quads very TTP, firm, distended Extremities- no peripheral edema Neuro- grossly intact ICD10 Worksheet Patient Problems: Problems Problem Status Onset Abdominal pain Acute Bowel obstruction Acute Nausea with vomiting Acute Breast cancer Acute
[2017-12-25] MEDS: LOSARTAN POTASSIUM 50 MG TAB PO SCH (09:00)
[2017-12-25] MEDS: ESCITALOPRAM OXALATE 10 MG TAB PO SCH (09:00)
[2017-12-25 11:14] LABS: PLATELET COUNT 136 10^3/uL (150-400)
--- NOTE | 2017-12-25 12:33 | ASMTCMCOM ---
CM Note CM Note Notes: Pt is a 72 y/o female admitted for a bowel obstruction. Surgery has been consulted. Needs are TBD at this time. CM to follow. Plan: TBD Date Signed: 12/25/2017 12:32 PM Electronically Signed By:AJAY Okeefe
--- NOTE | 2017-12-25 12:40 | PDMN ---
Medical Necessity Medical necessity: MCG M05 abd pain undg: symptoms similar to previous SBO, NG placement - IV pain meds, abd still painful and distended - firm, neg. flatus, + vomiting, surg consult pend. sig. PMH including previous SBO, renal Ca., nephrectomy, lysis of adhesions, status changed to INPT 12/25/17 for ongoing care of poss SBO req NGT and further monitoring.
[2017-12-25] MEDS ORDERED: cefOXitin SODIUM 2 GM in NS 100 ML IV ONE (12:42)
--- NOTE | 2017-12-25 13:03 | PDANEPAE ---
ANE History of Present Illness Laparoscopic exploration, ZAN, possible resection of small bowel ANE Past Medical History - Cardiovascular History Hx Hypertension: Yes Hx Arrhythmias: No Hx Chest Pain: No Hx Coronary Artery / Peripheral Vascular Disease: No Hx CHF / Valvular Disease: No Hx Palpitations: No Cardiovascular History Comment: well controlled HTN - Pulmonary History Hx COPD: No Hx Asthma/Reactive Airway Disease: No Hx Recent Upper Respiratory Infection: No Hx Oxygen in Use at Home: No Hx Sleep Apnea: No - Neurologic History Hx Cerebrovascular Accident: No Hx Seizures: No Hx Dementia: No - Endocrine History Hx Diabetes: No - Renal History Hx Renal Disorders: Yes Renal History Comment: REMOVAL LT KIDNEY FOR CA - Liver History Hx Hepatic Disorders: No - Neurological & Psychiatric Hx Hx Neurological and Psychiatric Disorders: Yes Neurological / Psychiatric History Comment: DEPRESSION- on Rx "feels okay about current health" - Cancer History Hx Cancer: Yes Cancer History Comment: KIDNEY, R breast infiltrating ductal carcinoma - Congenital Disorder History Hx Congenital Disorders: No - GI History Hx Gastrointestinal Disorders: No Gastrointestinal History Comment: History of 3 intestinal blockages with surgeries - Other Health History Other Health History: Sm "lump and some bruising R chest area" (R mastectomy). LOWER BACK. HAS DDD 3 VERTEBRA FUSED LOWER BACK - Chronic Pain History Chronic Pain: Yes (LOWER BACK) - Surgical History Prior Surgeries: Bilat mastectomy w/sentinel node bx 07-12-16. CERVICAL LAMINECTOMY 11/[address] [facility]. LYSIS OF ADHESIONS X3. REMVL LT KIDNEY FOR CA. COLECTOMY FOR BLOCKAGE x3. HYSTERECTOMY ANE Review of Systems Review of systems is: negative Review of Systems: - Exercise capacity Exercise capacity: >=4 METS ANE Patient History - Allergies Allergies/Adverse Reactions: Sulfa (Sulfonamide Antibiotics) Allergy (Severe, Verified 12/24/17 13:30) Other-Enter Comments - Home Medications Home medications: home medication list seen and reviewed Home Medications: Colestipol HCl [Colestid (*)] 2 gm PO BID 07/12/16 [Last Taken 08/17/16] Escitalopram Oxalate [Lexapro] 20 mg PO DAILY 07/12/16 [Last Taken 08/18/16 07: 00] LORazepam [Ativan (*)] 0.5 - 1 mg PO HS PRN 07/12/16 [Last Taken 08/16/16] Losartan Potassium 100 mg PO DAILY 07/12/16 [Last Taken 08/18/16 07:00] Zolpidem Tartrate [Ambien 10 mg] 5 mg PO HS PRN 07/12/16 [Last Taken 08/17/16] Hydrocodone/Acetaminophen [[place] 5/325 (*)] 1 each PO Q6 PRN 08/17/16 [Last Taken 1 Week Ago ~08/11/16] Herbals/Supplements -Info Only 1 ea PO DAILY 12/24/17 [Last Taken Unknown] - NPO status NPO Status: no food or drink >8 hours - Anes Hx Anes Hx: no prior problems - Smoking Hx Smoking Status: Never smoked - Family Anes Hx Family Anes Hx: none Family Hx Anesthesia Complications: None known ANE Labs/Vital Signs - Labs Result Diagrams: 12/25/17 08:18 12/25/17 08:18 - Vital Signs Vital Signs: reviewed preoperatively; see RN documention for details Blood Pressure: 142/75 Heart Rate: 92 Respiratory Rate: 12 O2 Sat (%): 96 Height: 152.4 cm Weight: 63 kg ANE Physical Exam - Airway Neck exam: FROM Mallampati Score: Class 2 Mouth exam: normal dental/mouth exam - Pulmonary Pulmonary: no respiratory distress - Cardiovascular Cardiovascular: regular rate and rhythym - ASA Status ASA Status: II, E ANE Anesthesia Plan Anesthesia Plan: general endotracheal anesthesia (RSI)
[2017-12-25] MEDS ORDERED: MIDAZOLAM 2 MG/2 ML VIAL IVP ONE (13:04)
[2017-12-25] MEDS ORDERED: LR 1,000 ML IV ONE (13:09)
[2017-12-25] MEDS: ENOXAPARIN 40 MG/0.4 ML SYR SC SCH (13:16)
[2017-12-25] MEDS ORDERED: BUPIVACAINE 0.5% 30 ML SDV ONE (13:18)
--- NOTE | 2017-12-25 13:30 | SOAPPROG ---
SOAP Progress Note Assessment/Plan: Assessment: PERSISTENT SBO WITH PAIN/ NO BM OR FLATUS FOR 3 DAYS CO SVERE CRAMPY ABD PAIN ABD SOFT, DISTENDED MILDLY TENDER RISKS AND OPTIONS FULLY DISCUSSED Plan:TO OR 12/25/17 13:29 Objective: Vital Signs Temp Pulse Resp BP Pulse Ox 37.2 C 92 12 142/75 H 96 12/25/17 13:11 12/25/17 13:27 12/25/17 13:27 12/25/17 13:27 12/25/17 13:27 ICD10 Worksheet Patient Problems: Problems Problem Status Onset Abdominal pain Acute Bowel obstruction Acute Nausea with vomiting Acute Breast cancer Acute
[2017-12-25] MEDS ORDERED: ROCURONIUM 50 MG/5 ML VIAL ONE ×2 (13:33→14:52)
[2017-12-25] MEDS ORDERED: ONDANSETRON 4 MG/2 ML VIAL ONE (13:33)
[2017-12-25] MEDS ORDERED: fentaNYL 250 MCG/5 ML INJ ONE (13:33)
[2017-12-25] MEDS ORDERED: LIDOCAINE 2% 100 MG/5 ML SYR ONE (13:33)
[2017-12-25] MEDS ORDERED: PROPOFOL 200 MG/20 ML VIAL ONE (13:33)
[2017-12-25] MEDS ORDERED: DEXAMETHASONE 4 MG/ML VIAL ONE (13:33)
[2017-12-25] MEDS ORDERED: ACETAMINOPHEN 500 MG TAB PO PRN (14:59)
[2017-12-25] MEDS ORDERED: HYDROmorphONE/DILAUDID 2 MG/ML INJ IVP PRN (14:59)
[2017-12-25] MEDS ORDERED: oxyCODONE IR 5 MG TAB PO PRN (14:59)
[2017-12-25] MEDS ORDERED: DEXAMETHASONE 4 MG/ML VIAL IVP PRN (14:59)
[2017-12-25] MEDS ORDERED: ONDANSETRON 4 MG/2 ML VIAL IVP PRN ×2 (14:59→18:16)
[2017-12-25] MEDS ORDERED: HYDROCODONE/APAP 5/325 TAB PO PRN (14:59)
[2017-12-25] MEDS ORDERED: fentaNYL 100 MCG/2 ML INJ IVP PRN (14:59)
[2017-12-25] MEDS ORDERED: MEPERIDINE 25 MG/0.5 ML AMP IVP PRN (14:59)
[2017-12-25] MEDS ORDERED: NALOXONE HCL 0.4 MG/ML INJ IVP PRN ×2 (14:59→18:17)
[2017-12-25] MEDS ORDERED: PROMETHAZINE HCL 25 MG/ML INJ IVP PRN (14:59)
--- NOTE | 2017-12-25 15:01 | POSTANESTH ---
Post Anesthetic Evaluation Cardiovascular Status: Normal, Stable, Similar to Pre-Op Cond Respiratory Status: Normal, Stable, Similar to Pre-op Cond. Level of Consciousness/Mental Status: Can Participate in Eval, Mildly Sleepy, Arousable Pain Control: Adequate, Prn Tx Ordered Nausea/Vomiting Control: Adequate, Prn Tx Ordered Complications Possibly Related to Anesthesia: None Noted
[2017-12-25] MEDS ORDERED: SUGAMMADEX SODIUM 200 MG/2 ML VIAL IVP ONE (15:09)
[2017-12-25] MEDS ORDERED: MEPERIDINE 25 MG/ML SYR ONE (15:29)
--- NOTE | 2017-12-25 18:13 | POSTOPPROG ---
Post Op Note Date of Operation: 12/25/17 Surgeon: René Willard Anesthesiologist: DELL Anesthesia: GET(General Endotracheal) Pre-op Diagnosis: SBO Post-op Diagnosis: SBO Indication: SEVERE PAIN Procedure: LAPAROSCOPY, LAPAROTOMY FOR ADHESIOLYSIS Findings: CLOSED LOOP BOWEL OBSTRUCTION THE PELVIS FROM A SINGLE ADHESIONS, VIABLE OBED Inf/Abcess present in the surg proc area at time of surgery?: Yes Depth: Organ Space EBL: Minimal Complications: NONE
[2017-12-25] MEDS ORDERED: HYDROmorphONE/DILAUDID 6 MG/30 ML PCA IV PRN (18:17)
--- NOTE | 2017-12-25 18:25 | PDGENHP ---
History & Physical Chief Complaint: ABDOMINAL PAIN History of Present Illness: 72-YEAR-OLD FEMALE WELL KNOWN TO ME WHO PRESENTS WITH A RECURRENT SMALL-BOWEL OBSTRUCTION. CT SCAN IS NONDIAGNOSTIC BUT HER PLAIN FILMS SUGGEST DILATED SMALL BOWEL. SHE IS HAVING WAVES OF CRAMPY PAIN GOING ACROSS HER MID ABDOMEN AND IS DISTENDED AND QUITE UNCOMFORTABLE. NO EMESIS BUT NOT DEFINITELY NAUSEA. NO BOWEL MOVEMENT OR FLATUS FOR 3 DAYS. HISTORY OF MULTIPLE INTRA-ABDOMINAL SURGERIES INCLUDING 3 PREVIOUS BOWEL OBSTRUCTIONS Pertinent Past, Social, Family History: PMH: DOUBLE MASTECTOMY, LEFT NEPHRECTOMY, LAPAROTOMY FOR LYSIS OF ADHESIONS, HYSTERECTOMY. HYPERTENSION, DEPRESSION, HYPERLIPIDEMIA. REVIEW OF SYSTEMS: -10 POINT REVIEW EXCEPT RELATED TO THE HPI. MEDICATIONS: LEXAPRO, LOSARTAN, COLESTIBED, AMBIEN, ATIVAN. ALLERGIES SULFA. FAMILY HISTORY NONCONTRIBUTORY. SOCIAL HISTORY: NONSMOKER Relevant Physical Exam: GENERAL: ALERT, COOPERATIVE 72-YEAR-OLD FEMALE WHO IS IN SOME DISCOMFORT, AFEBRILE. HEENT NONICTERIC, NO ADENOPATHY, PERRLA, DRY MUCOUS MEMBRANES. NECK SUPPLE, NONTENDER, NO THYROMEGALY. CHEST CLEAR AND SYMMETRIC. COR REGULAR RHYTHM. ABDOMEN SOFT BUT DISTENDED SOME TENDERNESS IN THE RIGHT LOWER QUADRANT WELL-HEALED MIDLINE INCISION, NO OBVIOUS HERNIAS. EXTREMITIES FULL RANGE OF MOTION FULL PULSES. PSYCH EXAM ALERT ORIENTED AND COOPERATIVE. NEURO EXAM PHYSIOLOGIC AND SYMMETRIC Cardiorespiratory Assessment: IMPRESSION: PROBABLE SMALL-BOWEL OBSTRUCTION DESPITE CT FINDINGS. SINCE SHE HAS THIS TENDER SHE WILL PROBABLY NEED SURGERY SOONER RATHER THAN LATER. NG HAS [id number] AMOUNT OF BILE STAINED FLUID. PLAN LAPAROSCOPY OR LAPAROTOMY FOR ADHESIOLYSIS FOR SMALL BOWEL OBSTRUCTION/RISKS AND OPTIONS FULLY DISCUSSED AND SHE WISHES TO PROCEED
[2017-12-26] MEDS: HYDROmorphONE/DILAUDID 1 MG/ML INJ IVP PRN ×6 (04:22→20:54)
[2017-12-26] MEDS: D5W 1/2 NS W/ 20 KCl/L 1,000 ML IV SCH ×3 (04:24→23:33)
[2017-12-26 05:20] LABS: PLATELET COUNT 121 10^3/uL (150-400)
--- NOTE | 2017-12-26 08:50 | SOAPPROG ---
SOAP Progress Note Assessment/Plan: Assessment:Bowell obstruction, surgically repaired. Generally doing very well post op. Plan: Await for gas to start passing. Ambulate. Encourage deep breaths and splinted coughing. 12/26/17 08:49 Subjective: Doing OK post op. Surgical pain remains. No gas pr rectum. NO nausea. Objective: Vital Signs Temp Pulse Resp BP Pulse Ox 98.5 F 94 28 H 130/64 H 92 12/26/17 07:56 12/26/17 07:56 12/26/17 07:56 12/26/17 07:56 12/26/17 07:56 Laboratory Results 12/26/17 04:38 12/26/17 04:38 12/25/17 12/26/17 12/27/17 05:59 05:59 05:59 Intake Total 1700 Output Total 1235 Balance 465 Lungs clear to asc. Reasonable bowel sounds. COR RRR. ICD10 Worksheet Patient Problems: Problems Problem Status Onset Abdominal pain Acute Bowel obstruction Acute Nausea with vomiting Acute Breast cancer Acute
[2017-12-26] MEDS: ENOXAPARIN 40 MG/0.4 ML SYR SC SCH (09:17)
[2017-12-26] MEDS: ESCITALOPRAM OXALATE 10 MG TAB PO SCH (09:31)
[2017-12-26] MEDS: LOSARTAN POTASSIUM 50 MG TAB PO SCH (09:35)
--- NOTE | 2017-12-26 11:58 | ASMTCMCOM ---
CM Note CM Note Notes: CM spoke to TREVER Mai. Pt had surgery yesterday. Pt will d/c independent when medically stable. No therapies ordered at this time. CM available for changes. Plan: Independent Date Signed: 12/26/2017 11:57 AM Electronically Signed By:AJAY Okeefe
--- NOTE | 2017-12-26 12:21 | SOAPPROG ---
SOAP Progress Note Assessment/Plan: Assessment: 72yo female s/p laparotomy for single adhesion causing bowel obstruction, history of multiple ab surgeries PE awake, alert, comfortable NG tube in place abdomen bandages dry, abdomen soft to palpation Plan: clamp NG tube and if doing well possible removal later today saw pt with dr Willard 12/26/17 12:19 Objective: Vital Signs Temp Pulse Resp BP Pulse Ox 36.9 C 95 12 129/64 H 91 L 12/26/17 11:30 12/26/17 11:30 12/26/17 11:30 12/26/17 11:30 12/26/17 11:30 Laboratory Results 12/26/17 04:38 12/26/17 04:38 12/25/17 12/26/17 12/27/17 05:59 05:59 05:59 Intake Total 1700 Output Total 1235 100 Balance 465 -100 ICD10 Worksheet Patient Problems: Problems Problem Status Onset Abdominal pain Acute Bowel obstruction Acute Nausea with vomiting Acute Breast cancer Acute
[2017-12-27] MEDS: HYDROmorphONE/DILAUDID 1 MG/ML INJ IVP PRN ×6 (02:47→23:31)
[2017-12-27] MEDS: D5W 1/2 NS W/ 20 KCl/L 1,000 ML IV SCH ×3 (05:58→18:37)
[2017-12-27] MEDS: LOSARTAN POTASSIUM 50 MG TAB PO SCH (08:49)
[2017-12-27] MEDS: ESCITALOPRAM OXALATE 10 MG TAB PO SCH (08:49)
[2017-12-27] MEDS: ENOXAPARIN 40 MG/0.4 ML SYR SC SCH (09:34)
--- NOTE | 2017-12-27 10:54 | SOAPPROG ---
SOAP Progress Note Assessment/Plan: Assessment: 72 y/o F s/p exploratory laparoscopy and ZAN for SBO POD #2 S: Still not passing gas or BMs yet. Frustrated with NG tube. O: Alert Afebrile RRR No increased WOB Abdomen: distended, hypoactive BS, incisions cdi NG tube in place with 200cc bilious output over night. Plan: Ok to clamp NG tube. Will keep it in until she starts passing gas. Ambulate as much as possible. Ok to have cepacol lozenges. 12/27/17 10:52 Objective: Vital Signs Temp Pulse Resp BP Pulse Ox 36.6 C 89 24 H 124/74 H 96 12/27/17 08:17 12/27/17 08:17 12/27/17 08:17 12/27/17 08:49 12/27/17 08:17 Laboratory Results 12/26/17 04:38 12/26/17 04:38 12/26/17 12/27/17 12/28/17 05:59 05:59 05:59 Intake Total 1700 3488 Output Total 1235 31707 300 Balance 465 -72941 -300 ICD10 Worksheet Patient Problems: Problems Problem Status Onset Abdominal pain Acute Bowel obstruction Acute Nausea with vomiting Acute Breast cancer Acute
[2017-12-27] MEDS: CEPACOL LOZENGE PO PRN (11:33)
[2017-12-28] MEDS: D5W 1/2 NS W/ 20 KCl/L 1,000 ML IV SCH ×3 (00:55→19:39)
[2017-12-28] MEDS: HYDROmorphONE/DILAUDID 1 MG/ML INJ IVP PRN ×3 (03:40→15:13)
[2017-12-28] MEDS: CEPACOL LOZENGE PO PRN (07:12)
[2017-12-28] MEDS ORDERED: METOCLOPRAMIDE 10 MG/2 ML VIAL IVP ONE (07:16)
[2017-12-28] MEDS: ENOXAPARIN 40 MG/0.4 ML SYR SC SCH (08:10)
[2017-12-28] MEDS: LOSARTAN POTASSIUM 50 MG TAB PO SCH (08:10)
[2017-12-28] MEDS: ESCITALOPRAM OXALATE 10 MG TAB PO SCH (08:10)
--- NOTE | 2017-12-28 11:22 | SOAPPROG ---
SOAP Progress Note Assessment/Plan: Assessment: 72 y/o F s/p exploratory laparoscopy and ZAN for SBO POD #2 S: Still not passing gas or BMs yet. Frustrated with NG tube. O: Alert Afebrile RRR No increased WOB Abdomen: distended, hypoactive BS, incisions cdi NG tube in place with 200cc bilious output over night. Plan: Ok to clamp NG tube. Will keep it in until she starts passing gas. Ambulate as much as possible. Ok to have cepacol lozenges. 12/27/17 10:52 12/28/17 11:21 Passed gas this am. 600cc out from NG tube over night. Still bloated. Clamp NG tube and start clears. Will likely keep tube in for another day. Objective: Vital Signs Temp Pulse Resp BP Pulse Ox 36.8 C 92 20 142/68 H 86 L 12/28/17 11:01 12/28/17 11:01 12/28/17 11:01 12/28/17 11:01 12/28/17 11:01 Laboratory Results 12/26/17 04:38 12/26/17 04:38 12/27/17 12/28/17 12/29/17 05:59 05:59 05:59 Intake Total 6356 7773 Output Total 77287 1999 1458 Suud[place]c -[id number] 4160 -3260 ICD10 Worksheet Patient Problems: Problems Problem Status Onset Abdominal pain Acute Bowel obstruction Acute Nausea with vomiting Acute Breast cancer Acute
--- NOTE | 2017-12-28 11:23 | ASMTCMCOM ---
CM Note CM Note Notes: Pts case discussed w/ TREVER Lara. Therapies have been ordered. Pt is unsteady on her feet. Needs are TBD at this time. CM to follow. Plan: TBD Date Signed: 12/28/2017 11:22 AM Electronically Signed By:AJAY Okeefe
--- NOTE | 2017-12-28 12:36 | SOAPPROG ---
SOAP Progress Note Assessment/Plan: Assessment: 72 yo female s/p ex lap for sbo post op day 3 -slowly progressing, did have gas this am, is really wanting the NGT removed - had 600 cc out, now clamped -trying clears small sips, couple bits of jello, is ambulating and feeling better -hopefully will continue to have gas and more abdominal movement to be able to d /c NGT and as progresses be able to increase diet -cont IS, ambulation -elev bp - has not had bp meds yet today - is having a hard time swallowing w/ NGT in place but will try again and let us know if unable -h/o depression/anxiety - cont on SSRI -dispo - will depend on return of bowel function Plan: 12/28/17 12:23 Subjective: Doing a little better today, + small gas Objective: Vital Signs Temp Pulse Resp BP Pulse Ox 36.8 C 92 20 142/68 H 86 L 12/28/17 11:01 12/28/17 11:01 12/28/17 11:01 12/28/17 11:01 12/28/17 11:01 Laboratory Results 12/26/17 04:38 12/26/17 04:38 12/27/17 12/28/17 12/29/17 05:59 05:59 05:59 Intake Total 3488 4968 Output Total 75508 2000 1450 Balance -12349 2968 -1450 Gen: Alert, spouse at bedside, A&O, feeling brighter Heent: perrl, eomi Neck: soft, supple Chest: cta b CV: rrr ABD: hypoactive bs Ext: no edema - Pending Discharge Pending Discharge Within 48 Hours: Yes Pending Discharge Date: 12/30/17 Pending Discharge Time: 11:00 ICD10 Worksheet Patient Problems: Problems Problem Status Onset Breast cancer Acute Abdominal pain Acute Nausea with vomiting Acute Bowel obstruction Acute
[2017-12-28] MEDS: HYDROCODONE/APAP 5/325 TAB PO PRN (20:35)
[2017-12-29 07:53] VITALS: BP 138/75
[2017-12-29] MEDS: ESCITALOPRAM OXALATE 10 MG TAB PO SCH (08:40)
[2017-12-29] MEDS: LOSARTAN POTASSIUM 50 MG TAB PO SCH (08:40)
[2017-12-29] MEDS: ENOXAPARIN 40 MG/0.4 ML SYR SC SCH (08:41)
--- NOTE | 2017-12-29 08:57 | SOAPPROG ---
SOAP Progress Note Assessment/Plan: Assessment: Plan: 12/29/17 08:55 SBO s/p surgery, doing well, pain ok, d/c home Subjective: Patient is hungry, having bowel movements and wants to go home. Objective: Vital Signs Temp Pulse Resp BP Pulse Ox 37.1 C 91 16 138/75 H 95 12/29/17 07:52 12/29/17 07:52 12/29/17 07:52 12/29/17 08:40 12/29/17 07:52 Laboratory Results 12/26/17 04:38 12/26/17 04:38 12/28/17 12/29/17 12/30/17 05:59 05:59 05:59 Intake Total 4968 1000 Output Total 1999 2660 Balance 2968 -1660 Gen: bright, NAD Lungs: mildly diminished BS Heart: RRR Abd + hypoactive BS, moderate distension LE's no edema ICD10 Worksheet Patient Problems: Problems Problem Status Onset Abdominal pain Acute Bowel obstruction Acute Nausea with vomiting Acute Breast cancer Acute
--- NOTE | 2017-12-29 10:47 | SOAPPROG ---
SOAP Progress Note Assessment/Plan: Assessment/plan: 72 y/o F s/p exploratory laparoscopy and ZAN for SBO POD #4 S: Passing gas and had BM , feeling much better. NG tube came out last night. Tolerating a regular diet so far this morning. Eager to go home. O: Alert Afebrile RRR No increased WOB Abdomen: distended, normoactive BS, incisions cdi. 12/29/17 10:45 Objective: Vital Signs Temp Pulse Resp BP Pulse Ox 37.1 C 91 16 138/75 H 95 12/29/17 07:52 12/29/17 07:52 12/29/17 07:52 12/29/17 08:40 12/29/17 07:52 Laboratory Results 12/26/17 04:38 12/26/17 04:38 12/28/17 12/29/17 12/30/17 05:59 05:59 05:59 Intake Total 4968 1000 Output Total 1999 8213 624 Balance 4104 -1660 -353 ICD10 Worksheet Patient Problems: Problems Problem Status Onset Abdominal pain Acute Bowel obstruction Acute Nausea with vomiting Acute Breast cancer Acute
--- NOTE | 2017-12-29 11:57 | ASMTLACE ---
LACE Length of stay for Answers: 3 days current admission Acuity / Level of Answers: Yes Care: Did the patient have an inpatient admission? Comorbidities - select Answers: Opioid dependence all that apply / Chronic pain Other Notes: HTN; H of cancer # of Emergency department Answers: 1-2 visits in the last 6 months Score: 12 Date Signed: 12/29/2017 11:41 AM Electronically Signed By:AJAY Okeefe
--- NOTE | 2017-12-29 11:58 | ASMTDCNOTE ---
Case Management Discharge Discharge Order Complete? Answers: Yes Patient to Obtain Answers: via Family Medications Transportation Arranged Answers: Family/Friends EMTALA Complete Answers: No Case Management Transport Answers: No Form Complete Faxed Final Orders Answers: No Agency/Facility Transfer Answers: No Report Printed & Faxed to Receiving Agency Family Notified Answers: No Discharge Comments Notes: Pts case discussed w/ TREVER Lara. Pt is independent on her feet today. Pt does not have any d/c needs. CM available for changes. Plan: Independent Date Signed: 12/29/2017 11:42 AM Electronically Signed By:AJAY Okeefe
--- NOTE | 2017-12-29 19:20 | GDS ---
REASON FOR ADMISSION: Acute lower abdominal pain. DISCHARGE DIAGNOSIS: Acute small bowel obstruction, relieved by surgery. HOSPITAL COURSE: Patient was admitted due to recurrence of pain. She was seen the day prior in the ER. Films were not that impressive. She was given pain medicine with some improvement and went home . She came back the next day with a more intense pain. Symptoms were consistent with a previous sma ll bowel obstruction. She had surgical consult with Dr. Johnson. Ultimately, Dr. Willard did her surger y to relieve a small bowel obstruction and snag. She had significant improvement in pain. Her bowel s were a bit slow to return in function. She has now been able to have bowel movements. She is hung ry. She is not having nausea or vomiting. Her NG tube is out and she wants to go home. She will be discharged home today. She will use Vicodin, which she has at home, for pain management. She will resume her regular medicines. She will have outpatient followup in the next couple of days. She monisha l call if she has any other complications. /[id number]/MODL
== END 2017-12-29 11:06 | disposition home or self-care (01) | DRG 337 ==
LOC: F3E 15:54 → OBSVTOIN 12-25 12:29
PROVIDERS: ADMIT Internal Medicine; ATTEND Internal Medicine
DX: K56.50 Intestinal adhesions [bands], unspecified as to partial versus complete obstruction (principal); I10 Essential (primary) hypertension; E78.5 Hyperlipidemia, unspecified; F32.9 Major depressive disorder, single episode, unspecified; E86.9 Volume depletion, unspecified; Z90.5 Acquired absence of kidney; Z90.710 Acquired absence of both cervix and uterus; Z90.13 Acquired absence of bilateral breasts and nipples; Z85.528 Personal history of other malignant neoplasm of kidney; Z85.3 Personal history of malignant neoplasm of breast; Z53.31 Laparoscopic surgical procedure converted to open procedure
CPT/HCPCS: 82435-PO; 82565-PO; 82947-PO; 84132-PO; 84295-PO; 84520-PO; 85014-PO; 86300-90; 96374; 97165-GO; C1765; G0378; G8987-GO-CI; G8988-GO-CI; G8989-GO-CI; J0694; J1100; J1170; J1644; J1650; J1885; J2001; J2175; J2250; J2405; J2704; J2765; J3010

== ENCOUNTER 2018-01-02 17:44 | Inpatient (IN) | payer OTHER ==
--- NOTE | 2018-01-02 17:52 | EDPHY ---
H & P Stated Complaint: sbo surg 12/25 still bloated/ abd films abnl today Time Seen by Provider: 01/02/18 17:51 - Personal History Current Tetanus Diphtheria and Acellular Pertussis (TDAP): Yes - Medical/Surgical History Hx Asthma: No Hx Chronic Respiratory Disease: No Hx Diabetes: No Hx Cardiac Disease: No Hx Renal Disease: Yes Hx Cirrhosis: No Hx Alcoholism: No Hx HIV/AIDS: No Hx Splenectomy or Spleen Trauma: No Other PMH: laminectomy, nephrectomy 2001 [place], bowel obstruction, hysterectomy, hypertension, degenerative disk disease, fused vertebrae, double masectomy - Social History Smoking Status: Never smoked Constitutional: Initial Vital Signs Temperature (C) 36.5 C 01/02/18 17:48 Heart Rate 83 01/02/18 17:48 Respiratory Rate 17 01/02/18 17:48 Blood Pressure 146/75 H 01/02/18 17:48 O2 Sat (%) 98 01/02/18 17:48 O2 Delivery Mode Room Air Allergies/Adverse Reactions: Sulfa (Sulfonamide Antibiotics) Allergy (Severe, Verified 01/02/18 17:45) Other-Enter Comments Home Medications: Medication Instructions Recorded Colestipol HCl [Colestid (*)] 2 gm PO BID 07/12/16 Escitalopram Oxalate [Lexapro] 20 mg PO DAILY 07/12/16 LORazepam [Ativan (*)] 0.5 - 1 mg PO HS PRN 07/12/16 Losartan Potassium 100 mg PO DAILY 07/12/16 Hydrocodone/Acetaminophen [[place] 1 each PO Q6 PRN 08/17/16 5/325 (*)] Herbals/Supplements -Info Only 1 ea PO DAILY 12/24/17 Zolpidem Tartrate [Ambien 5MG (*)] 2.5 mg PO HS PRN 01/02/18 Medical Decision Making ED Course/Re-evaluation: CHIEF COMPLAINT: Abdominal pain HISTORY OF PRESENT ILLNESS: The patient is a 72 y/o female with a history of a recent small bowel obstruction relieved by surgery who arrives with her at the referral of PCP for possible volvulus on noncontrast CT today. She is complaining of abdominal pain and bloating. She was admitted on 12/25/17 for a small bowel obstruction and ultimately treated surgically with a laparoscopic adhesiolysis. Her pain felt better at the time of discharge, but she has continued to have bloating that has progressively worsened. This is associated with reduction in appetite and dehydration. Her pain has slowly worsened as well and though not as severe as prior, she reports it feels similar in quality. She is still passing gas and her bowel movements since the surgery have been "awful," "thick, green, and mushy" sometimes orange in color. She also noticed a small amount of bright red blood she attributes to a hemorrhoid. No vomiting, fever. REVIEW OF SYSTEMS: A comprehensive 10 system review of systems is otherwise negative aside from elements mentioned in the history of present illness and medical decision making. PHYSICAL EXAM: HR, BP, O2 Sat, RR. Temp noted General Appearance: Alert, well hydrated, appropriate, and non-toxic appearing. Head: Atraumatic without scalp tenderness or obvious injury Eyes: Pupils equal, round, reactive to light and accommodation, EOMI, no trauma , no injection. Nose: Atraumatic, no rhinorrhea, clear. Throat: Mucus membranes moist. Neck: Supple, nontender, no lymphadenopathy. Respiratory: No retractions, no distress, no wheezes, and no accessory muscle use. Lungs are clear to auscultation bilaterally. Cardiovascular: Regular rate and rhythm, no murmurs, rubs, or gallops. Good capillary refill all extremities. Gastrointestinal: Abdomen is soft, diffusely tender, distended, fullness RLQ, no masses, no rebound, no guarding, no peritoneal signs. Surgical site is clean , dry, intact, with a well-healing midline incision with steristrips in place; no erythema, warmth, purulence. Musculoskeletal: Normal active ROM of all extremities, atraumatic. Neurological: Alert, appropriate, and interactive. The patient has non-focal cranial nerves, motor, sensory, and cerebellar exam. Skin: No rashes, good turgor, no nodules on palpation. Past medical history: Bowel obstruction, degenerative disc disease Past surgical history: laminectomy, nephrectomy 2001 [place], SBO adhesiolysis, hysterectomy, hypertension, spinal fusion, double mastectomy Family history: noncontributory Social history: at bedside. PCP: Dr. Alfredo Prior medical records reviewed including admission 12/25/17 for SBO. DIAGNOSTICS/PROCEDURES/CRITICAL CARE TIME: Abdominal x-ray: DIFFERENTIAL DIAGNOSIS: The differential diagnosis for the patient's abdominal pain included but was not limited to ovarian cyst, pelvic inflammatory disease, ovarian torsion, urinary tract infection, ectopic , cholecystitis, and appendicitis. MEDICAL DECISION MAKING: This is a 72 y/o female with a recent SBO surgery 8 days ago who returns to the ED complaining of progressively worsening abdominal bloating and pain. She has abdominal distension and diffuse tenderness on exam. Her surgical sites are clean, dry, and intact without evidence of infection. Vitals are stable. Plan for IV, labs, and surgical consult. Will attempt to get copy of outpatient abdominal CT taken earlier today. 1804: Consulted with Dr. Willard, surgeon. He will assess patient in the ED. Dr. Willard assessed patient in the ED and will admit to his service. He asks for plain abdominal films while we are waiting to access the CT results from earlier in the day. Lipase elevated. Potassium low at 2.8. - Data Points Medications Given: Discontinued Medications Sodium Chloride (Ns) 1,000 mls @ 0 mls/hr IV EDNOW ONE; Wide Open PRN Reason: Protocol Stop: 01/02/18 18:00 Last Admin: 01/02/18 18:29 Dose: 1,000 mls Ondansetron HCl (Zofran) 4 mg IVP EDNOW ONE Stop: 01/02/18 18:00 Last Admin: 01/02/18 18:29 Dose: 4 mg Departure - Departure Disposition: [facility] Inpatient Acute Condition: Fair Report Scribed for: Karlos Alva Report Scribed by: Ivy Rivera Date of Report: 01/02/18 Time of Report: 18:04
[2018-01-02] MEDS ORDERED: NS 1,000 ML IV ONE (17:59)
[2018-01-02] MEDS ORDERED: ONDANSETRON 4 MG/2 ML VIAL IVP ONE (17:59)
[2018-01-02 18:29] LABS: PLATELET COUNT 325 10^3/uL (150-400)
[2018-01-02 18:38] LABS: INR 1.01 (0.83-1.16); PROTIME(PATIENT) 13.5 SEC (12.0-15.0)
[2018-01-02] MEDS ORDERED: LORazepam 2 MG/ML INJ ONE (19:48)
[2018-01-02] MEDS ORDERED: LORazepam 2 MG/ML INJ IVP ONE (19:49)
[2018-01-02] MEDS ORDERED: ONDANSETRON DISINTEGRATING 4 MG TAB PO PRN (20:16)
[2018-01-02] MEDS ORDERED: HYDROmorphONE/DILAUDID 2 MG/ML INJ IVP PRN (20:16)
[2018-01-02] MEDS ORDERED: ZOLPIDEM TARTRATE 5 MG TAB PO PRN ×2 (20:16→20:25)
[2018-01-02] MEDS ORDERED: ONDANSETRON 4 MG/2 ML VIAL IVP PRN (20:16)
[2018-01-02] MEDS ORDERED: LORazepam 0.5 MG TAB PO PRN (20:23)
[2018-01-02] MEDS ORDERED: HYDROCODONE/APAP 5/325 TAB PO PRN (20:23)
[2018-01-02] MEDS ORDERED: POTASSIUM Cl (KCl) 40 MEQ in NS 1,000 ML IV SCH (20:30)
--- NOTE | 2018-01-02 21:22 | SOAPPROG ---
SOAP Progress Note Assessment/Plan: Assessment: 72 yo female s/p recent admission for sbo s/p surgery w/ Dr Willard w/ lysis of adhesions. She was doing fairly well but never felt back to her usual baseline and was having yellowy stools and still felt distended. She has had a poor appetite and not consuming much food or water. She reports that today she came in to see Dr Alfredo/Caterina Rosenberg [employer] and they had her try bowel prep and CT scan and she did have a bowel movement after this which was more normal and felt a little better, and initially CT looked like no obstruction, but upon radiology read w/ Dr Champion there was concern of a possible volvulus and Elsa was called and asked to go to the ER. Dr Willard was notified by Dr Alfredo who will be seeing Elsa shortly. Elsa has had 4 bowel obstructions since 2000 when she initially had a bowel obstruction w/ renal ca. -will follow along with Dr Willard, placed initial orders and called him to let him know, he can adjust diet per his exam and read of CT - for now NPO except meds if necessary, place on IVF - will start on NS w/ KCL x 1 L as K is low at 3.1, will need to adjust fluids tomorrow based on f/u labs. Bowel rest. Elsa does not want NGT placed - throat still sore from last one, she will dw Dr Willard. If truly volvulus she will be heading to OR, but hopefully she can have bowel rest and did have an additional BM in ER that made her feel better which is encouraging. Prn pain meds written. -htn - cont on losartan, if not ok to take po will change to IV meds -h/o depression/anxiety - cont escitalopram -insomnia - cont low dose zolpidem 2.5 mg prn qhs -dvt proph - if not going to OR will start on lovenox, will await Dr Willard assessment and review of CT. -hypoK - IVF x 1 L with K, re-assess w/ bmp, adjust fluids as needed Plan: 01/02/18 21:11 Subjective: Doing a little better after BM but still w/ significant distention and discomfort Objective: Vital Signs Temp Pulse Resp BP Pulse Ox 36.5 C 87 16 151/79 H 90 L 01/02/18 17:48 01/02/18 20:50 01/02/18 20:50 01/02/18 20:50 01/02/18 20:50 Laboratory Results 01/02/18 18:15 01/02/18 18:15 01/01/18 01/02/18 01/03/18 05:59 05:59 05:59 Intake Total 1000 Output Total 300 Balance 700 PT 13.5 SEC (12.0-15.0) 01/02/18 18:15 INR 1.01 (0.83-1.16) 01/02/18 18:15 Gen: A&O, pleasant, restless and uncomfortable Heent: perr, eomi Neck: soft, supple Chest: cta b CV: rrr ABd: decreased bs, ttp flakito mid to L side Ext: no edema - Pending Discharge Pending Discharge Within 24 Hours: No ICD10 Worksheet Patient Problems: Problems Problem Status Onset Breast cancer Acute Abdominal pain Acute Nausea with vomiting Acute Bowel obstruction Acute
--- NOTE | 2018-01-02 22:43 | GHP ---
CHIEF COMPLAINT: Abdominal pain. HPI: The patient is a pleasant 72-year-old female, who has come into her PCP's office earlier today with a complaint of ongoing abdominal pain not getting better. She recently on 12/25/2017, had surgery for lysis of adhesions and small bowel obstruction. She had a hospitalization for 5 days requiring an NG tube and has been discharged home, and for the last 4 days has been at home but really has not been progressing well. Has been having some yellow stool but not well-formed stool. A lot of abdominal distention, anorexia, not even wanting to drink much fluids, and started feeling worse today and came in. She was given a CT and a bowel prep. She did have a bowel movement, which made her feel better. The CT was initially read as okay, but then further read with Dr. Champion was concerning for possible volvulus. She was called and directed to go to the ER, and Dr. Nuno Willard was contacted by Dr. Alfredo to notify him as well. While she was in the ER, she had an additional bowel movement, and that did make her feel a little bit better. Of note, she has had 4 bowel obstructions since 2000, when she initially had a left nephrectomy and a bowel obstruction at that time. PAST MEDICAL HISTORY: Otherwise significant for anxiety, depression, hyperlipidemia, hypertension, history of left renal cell carcinoma, coronary atherosclerosis due to calcified coronary lesion, back pain. SURGICAL HISTORY: Of note, she has had 4 bowel blockages with most recent surgery on December 25, 2017; also a history of thumb surgery, 2015; cervical spine surgery, November 2015; left nephrectomy, 2000; hysterectomy; double mastectomy, breast cancer, 2016. FAMILY HISTORY: Her father at 95 with carotid disease. Daughter alive with no medical problems. Mom at 58 from [place]. Siblings: A brother alive with cervical spine issue. SOCIAL HISTORY: She is a nonsmoker and lives with her spouse. MEDICATIONS: Include colestipol 1 g 2 tablets twice daily, losartan 100 mg once daily, lorazepam mg q.h.s. p.r.n. 1-2 tabs as needed, Lexapro 20 mg 1 p.o. daily, [place] 5/325 p.r.n. pain, and zolpidem 2.5 mg p.o. q.h.s. ALLERGIES: Include sulfa. REVIEW OF SYSTEMS: CONSTITUTIONAL: She has not been feeling well since prior to her last admission with abdominal pain and distention. Decreased appetite. Denies fevers or chills. No recent infections. HEENT: Denies any change in vision or hearing. RESPIRATORY: Denies cough, shortness of breath, wheezing. CARDIOVASCULAR: Denies palpitations, chest pain. GI: Significant for abdominal pain, distention, bloating, bowel obstructions in the past. See HPI. Yellow-colored stools the last few days but 2 bowel movements today that were more normal. : Negative for any dysuria or change in frequency or urgency. MUSCULOSKELETAL: Has some chronic back issues but nothing acute. ALLERGIC/ HEMATOLOGIC: Negative. PSYCHIATRIC: Has a history of mild anxiety/depression , treated with escitalopram and stable. NEUROLOGIC: Negative. PHYSICAL EXAMINATION: VITALS: Blood pressure 151/79, heart rate 82, 93% on room air, respiration rate 16, afebrile. GENERAL: Pleasant female but in obvious discomfort, unable to find a very comfortable position on the bed. Spouse at bedside. HEENT: PERR. EOMI. NECK: Soft and supple. No thyromegaly or lymphadenopathy appreciated. CHEST: Clear to auscultation bilaterally. CARDIOVASCULAR: Regular rate and rhythm. Normal S1, S2. ABDOMEN : Decreased bowel sounds throughout and tenderness to palpation, left lower quadrant and mid abdominal area greater than the rest, but still diffusely discomfort. MUSCULOSKELETAL: Is moving all extremities symmetrically. Normal strength throughout. NEUROLOGIC: Alert and oriented. Cranial nerves 2-12 grossly intact. PSYCHIATRIC: Bright affect despite obvious discomfort. ASSESSMENT: Delightful 72-year-old female with unfortunate recurrent bowel obstructions with recent surgery and lysis of adhesions without full feeling of recovery with progressive discomfort and distention over the past 4 days since discharged home, with CT today concerning for possible volvulus. PLAN: 1. Dr. Willard will be seeing the patient. She is admitted n.p.o. except for meds. We will adjust to full n.p.o. if going to the OR. We will place on IV fluids and replace her low potassium. We will continue on bowel rest. She really does not want an NG tube. Feels like her throat is still sore from the last one that she had been in for 5 days just 4 days ago. We will discuss this with Dr. Willard. 2. Hypertension. Continue on losartan. 3. History of anxiety/depression. Continue on escitalopram. 4. Elevated lipase - likely 2/2 bowel surgery but will recheck and cont bowel rest and follow 4. DVT prophylaxis. We will hold off on Lovenox tonight while Dr. Willard comes to assess the patient to see if she is going to the OR or not. In the meantime , we will put on SCDs. /[id number]/MODL MTDD
--- NOTE | 2018-01-03 00:08 | SOAPPROG ---
SOAP Progress Note Assessment/Plan: Assessment: 72 FEMALE ADMITTED FOR BLOATING 8 DAYS SP LAP FOR SBO AND CLOSED LOOP OBSTRUCTION CT SUGGESTED MESENTERIC ABNORMALITY AFEBRILE WITH NORMAL WBC, NOT TACHY HEENT NONICTERIC CHEST CLEAR/ COR RR ABD SOFT WITH BS BUT MODERATELY TENDER LLQ EXTREM OK LIPASE 1120 IMPR: WATCH FOR REPEAT SBO Plan:CHECK LABS, FU 2-WAY 01/03/18 00:04 Objective: Vital Signs Temp Pulse Resp BP Pulse Ox 36.5 C 90 16 170/93 H 98 01/02/18 17:48 01/02/18 22:36 01/02/18 22:36 01/02/18 22:36 01/02/18 22:36 Laboratory Results 01/02/18 18:15 01/02/18 18:15 01/01/18 01/02/18 01/03/18 05:59 05:59 05:59 Intake Total 1000 Output Total 300 Balance 700 PT 13.5 SEC (12.0-15.0) 01/02/18 18:15 INR 1.01 (0.83-1.16) 01/02/18 18:15 ICD10 Worksheet Patient Problems: Problems Problem Status Onset Abdominal pain Acute Bowel obstruction Acute Breast cancer Acute Nausea with vomiting Acute
--- NOTE | 2018-01-03 06:20 | PDMN ---
Medical Necessity Medical necessity: Pt meets inpt criteria per MD order and MCG M-210, Intestinal Obstruction, 2 days. 72 y/o w/recent hx of surgery for lysis of adhesions and SBO (12/25/2017) presenting w/ongoing and progressing abd pain, distention, and anorexia. CT concerning for possible volvulus, surg consult, NPO , anticipate>2MN for management of above.
[2018-01-03] MEDS ORDERED: D5W NS W/ 20 KCl/L 1,000 ML IV SCH (07:00)
--- NOTE | 2018-01-03 08:09 | ASMTLACE ---
ANGIE Acuity / Level of Answers: Yes Care: Did the patient have an inpatient admission? Comorbidities - select Answers: Mild liver or renal all that apply disease Opioid dependence / Chronic pain Other Notes: HTN; HLD # of Emergency department Answers: 3-4 visits in the last 6 months Social determinants Answers: Mental health diagnosis (anxiety, depression, pers onality disorders, etc.) Score: 16 Date Signed: 01/03/2018 08:08 AM Electronically Signed By:Mandy Hutchinson
[2018-01-03] MEDS ORDERED: PROTOCOL POTASSIUM 1 DOSE MISC PRN (08:55)
[2018-01-03] MEDS ORDERED: ESCITALOPRAM OXALATE 10 MG TAB PO SCH (09:00)
[2018-01-03] MEDS ORDERED: Herbals/Supplements -Info Only PO SCH (09:00)
[2018-01-03] MEDS ORDERED: LOSARTAN POTASSIUM 50 MG TAB PO SCH (09:00)
[2018-01-03 09:24] LABS: PLATELET COUNT 281 10^3/uL (150-400)
--- NOTE | 2018-01-03 10:25 | ASMTCMCOM ---
CM Note CM Note Notes: Patient chart reviewed for discharge planning needs. Significant history of recurrent bowel obstructions, breast cancers, renal cell cancer s/p nephrectomy. 9 days post op exploratory Lap. Monitoring per surgery. CM to follow for needs . Plan: TBD Date Signed: 01/03/2018 10:25 AM Electronically Signed By:Jess Kennedy RN
[2018-01-03 11:25] VITALS: BP 155/79
--- NOTE | 2018-01-03 12:26 | SOAPPROG ---
SOAP Progress Note Assessment/Plan: Assessment/Plan: 72 Y F s/p recent laparotomy for SBO, admitted with recurrent SBO vs ileus. SBFT. If ok, then clears and ADAT. If does well, then d/c home later today. If problems on SBFT or with diet then will need continued observation and planning. S: passing gas. no pain. no nausea. O: alert, nad, smiling ctab rrr abd soft, inc cdi, +BS, appropriately tender 01/03/18 12:23 Objective: Vital Signs Temp Pulse Resp BP Pulse Ox 37.1 C 90 16 155/79 H 90 L 01/03/18 11:24 01/03/18 11:24 01/03/18 11:24 01/03/18 11:24 01/03/18 11:24 Laboratory Results 01/03/18 09:18 01/03/18 09:18 01/02/18 01/03/18 01/04/18 05:59 05:59 05:59 Intake Total 1570 Output Total 400 Balance 1170 PT 13.5 SEC (12.0-15.0) 01/02/18 18:15 INR 1.01 (0.83-1.16) 01/02/18 18:15 ICD10 Worksheet Patient Problems: Problems Problem Status Onset Abdominal pain Acute Bowel obstruction Acute Breast cancer Acute Nausea with vomiting Acute
--- NOTE | 2018-01-03 16:49 | SOAPPROG ---
SOAP Progress Note Assessment/Plan: Assessment: 72 FEMALE ADMITTED FOR BLOATING 8 DAYS SP LAP FOR SBO AND CLOSED LOOP OBSTRUCTION CT SUGGESTED MESENTERIC ABNORMALITY AFEBRILE WITH NORMAL WBC, NOT TACHY HEENT NONICTERIC CHEST CLEAR/ COR RR ABD SOFT WITH BS BUT MODERATELY TENDER LLQ EXTREM OK LIPASE 1120 IMPR: WATCH FOR REPEAT SBO Plan:CHECK LABS, FU 2-WAY 01/03/18 00:04 01/03/18 16:48 DOING WELL TODAY/ABDOMEN SOFT/POSITIVE BOWEL SOUNDS/POSITIVE FLATUS SMALL-BOWEL FOLLOW-THROUGH SHOWS RAPID TRANSIT TIME WITH 45 MIN TO THE COLON/ SHE DOES HAVE 1 PERSISTENT DILATED LOOPS WHICH IS MOST LIKELY THE LOOP INVOLVED IN HER CLOSE LOOP OBSTRUCTION BUT NO VOLVULUS OR PERFORATION OR FREE AIR OR OBSTRUCTIONS SIGNS PROBABLY HOME IF SHE TOLERATES DIET Objective: Vital Signs Temp Pulse Resp BP Pulse Ox 37.1 C 80 16 155/79 H 92 01/03/18 15:24 01/03/18 15:24 01/03/18 15:24 01/03/18 15:24 01/03/18 15:24 Laboratory Results 01/03/18 09:18 01/03/18 09:18 01/02/18 01/03/18 01/04/18 05:59 05:59 05:59 Intake Total 1570 Output Total 400 Balance 1170 PT 13.5 SEC (12.0-15.0) 01/02/18 18:15 INR 1.01 (0.83-1.16) 01/02/18 18:15 ICD10 Worksheet Patient Problems: Problems Problem Status Onset Abdominal pain Acute Bowel obstruction Acute Breast cancer Acute Nausea with vomiting Acute
--- NOTE | 2018-01-08 23:03 | GCON ---
DATE OF CONSULTATION: 01/02/2018 HISTORY OF PRESENT ILLNESS: Patient is a 72-year-old female, well known to me who had recently had a biopsy of adhesions for small bowel obstruction. She was admitted at this time because of some vagu e abdominal pain leading to a CAT scan, which suggested a mesenteric abnormality and possible recurre nt volvulus. She was relatively asymptomatic with no pain. She had been having bowel movements and flatus and was only slightly distended. I was consulted for evaluation of her possible recurrent bow el obstruction. She had been having bowel movements today and had one just before admission. She di d have a history of multiple bowel obstructions following a left nephrectomy in 2000. PAST SURGICAL/MEDICAL HISTORY: Includes 4 bowel blockages with a recent adhesiolysis. She has also had thumb surgery, a left nephrectomy, hysterectomy, double mastectomy for breast cancer, and cervica l spine surgery. In addition, she had some hypertension, a history of a renal cell carcinoma, and so me anxiety and depression. SOCIAL HISTORY: Reveals she is a nonsmoker. She is . FAMILY HISTORY: Noncontributory. MEDICATIONS: Include colestipol, Lexapro, [place], Ambien, losartan, lorazepam. ALLERGIES: Sulfa. PHYSICAL EXAMINATION: GENERAL: Reveals an alert, comfortable, 72-year-old female in no acute distre ss. VITAL SIGNS: Afebrile. HEAD AND NECK: Reveals no icterus. No adenopathy, PERRLA. NECK: Supp le, nontender with full range of motion. No thyromegaly. CHEST: Clear to auscultation and percussi on. CARDIAC: Regular rhythm without murmurs. ABDOMEN: Soft, mildly distended with positive bowel sounds. Minimally tender. She has a well-healed lower abdominal incision and no hernias. EXTREMITI ES: Reveal full range of motion, full pulses. NEUROLOGIC: Physiologic and symmetric. PSYCH: Aler t, oriented, cooperative. IMPRESSION: Probable residual inflammation from her small bowel obstruction just 8 days ago. This d oes not seem to have an acute abdomen or recurrent bowel obstruction at this time to me, and I suspec t the CT findings are simply edema in that mesentery of that obstructed bowel loop. PLAN: We will follow her closely. Probable small-bowel follow-through in the a.m. if she is not imp roving. /[id number]/MODL
== END 2018-01-03 17:05 | disposition home or self-care (01) | DRG 392 ==
LOC: F1N 20:00
PROVIDERS: ADMIT Surgery; ATTEND Surgery
DX: K59.8 Other specified functional intestinal disorders (principal); E86.9 Volume depletion, unspecified; I10 Essential (primary) hypertension; F32.9 Major depressive disorder, single episode, unspecified; F41.9 Anxiety disorder, unspecified; G47.00 Insomnia, unspecified; Z85.3 Personal history of malignant neoplasm of breast; Z90.710 Acquired absence of both cervix and uterus; Z90.13 Acquired absence of bilateral breasts and nipples
CPT/HCPCS: 82435-PO; 82565-PO; 82947-PO; 84132-PO; 84295-PO; 84520-PO; 85014-PO; 96374; J2060; J2405; J3480